=== PATIENT | male | born 1980 | race Caucasian/White ===

== ENCOUNTER 2023-11-06 23:21 | Inpatient (IN) | payer OTHER, SELFPAY ==
--- NOTE | ~2023-11-06 | XR_ITS ---
EXAMINATION: XR FOOT, RIGHT CLINICAL INFORMATION: Nonhealing wound. COMPARISON: None available. TECHNIQUE: AP, lateral, and oblique views of the right foot. FINDINGS: The bone mineralization is normal. The joint spaces are maintained. No fracture is seen. There is no bony erosive change. There is significant soft tissue swelling about the foot with an apparent wound along the dorsum of the midfoot. XR/XR foot RT 2V IMPRESSION: Significant soft tissue swelling about the foot with an apparent wound along the dorsum of the midfoot. No acute osseous abnormality.
[2023-11-06 23:27] VITALS: BP 121/83; PULSE 55; RESP 18; TEMP 36.7; O2SAT 100; BMI 25.8
--- NOTE | 2023-11-07 02:30 | ED.EXTPRO ---
HPI - Extremity Problem General Chief complaint: Extremity Problem Stated complaint: rt foot infection Time Seen by Provider: 11/07/23 01:39 Source: patient Mode of arrival: ambulatory History of Present Illness HPI Narrative: 42-year-old male with history of IVDA and states he has a nonhealing wound on the top of his right foot that he feels has continued to get red and swollen as well as warm. Related Data Allergies Allergy/AdvReac Type Severity Reaction Status Date / Time No Known Allergies Allergy Verified 11/06/23 23:27 Review of Systems Review of Systems: Pertinent positives and negatives as stated in HPI [facility] Past Medical History Source: nursing notes reviewed Social History Social History Smoked in Last 30 Days: Yes Use of substances other than those prescribed or required for medical reasons: Yes Substance Use Type: Heroin Substance Use Frequency: Chronic Longstanding Last Used Substance: Days (ago) Any prior treatment program specific to substance use: No Advance Directives: No Advance Directives Information Provided: Yes Physical Exam Vital Signs: Vital Signs: Last Vital Signs Temp 97.8 F 11/07/23 03:33 Pulse 57 11/07/23 03:33 Resp 14 11/07/23 03:33 BP 123/84 11/07/23 03:33 Pulse Ox 100 11/06/23 23:27 O2 Del Method Room Air 11/06/23 23:27 BMI result Body Mass Index 25.8 VITAL SIGNS: Reviewed. GENERAL: Well developed, well nourished, in no acute distress. HEAD: Normocephalic/atraumatic EYES: PERRLA, EOMI EARS: Ext canals without abnormality NOSE: Nares patent bilateral OROPHARYNX: no oral lesions noted, posterior pharynx clear NECK: Supple, no adenopathy LUNGS: Normal breath sounds. No adventitious sounds or accessory muscle use. SpO2<100> CARDIOVASCULAR: Regular rate and rhythm without noted murmurs ABDOMEN: Soft, non-tender, non-distended with bowel sounds. MUSCULOSKELETAL: No tenderness, deformities, or effusions noted on gross inspection. EXTREMITIES: No cyanosis, clubbing or edema. RIGHT FOOT: There is swelling, mild erythema, and an approximate 6 cm x 4.5 cm nonhealing wound to the dorsum of the foot SKIN: Inspection of the skin reveals no rashes NEUROLOGIC: Alert and oriented x 4. Strength and sensation to light touch were grossly intact x 4. Medications Administered Generic Name Dose Route Start Last Admin Trade Name Freq PRN Reason Stop Dose Admin Piperacillin Sod/Tazobactam 50 mls @ 100 mls/hr 11/07/23 03:54 11/07/23 04:05 Sod 3.375 gm/ Sodium Chloride IV 11/07/23 04:23 100 mls/hr ONCE ONE Administration Medical Decision Making Medical Decision Making [facility] Narrative: 42-year-old male with history and clinical presentation, DDX: Nonhealing right foot wound I reviewed all investigation and hematologic indices do not demonstrated leukocytosis or left shift, there is a thrombocytopenia that I suspect is chronic in nature and there is a normocytic anemia. Chemistry indices are negative for ANDERSON/electrolyte/liver enzyme derangements. CRP is within normal range. Patient received antibiotics. 0356: I discussed case with inpatient hospitalist who accepts admission. Differential Diagnosis Differential Diagnoses: The differential diagnosis associated with the presentation includes Please see the discussion above Admission/Observation Consideration of admission/observation: Escalation of care including admission/observation considered Please see the discussion above Consult Healthcare Provider Management of the patient was discussed with: Hospitalist Please see the discussion above Lab Data [facility] Lab Attestation statement: I reviewed the patient's lab results. Please see the discussion above 11/07/23 02:52 11/07/23 02:52 Labs: Lab Results 11/07/23 11/07/23 Range/Units 02:52 03:06 WBC 9.5 (4.8-10.8) X10*3/uL RBC 4.15 L (4.60-5.80) X10*6/uL Hgb 12.6 L (14.0-18.0) g/dl Hct 36.9 L (42.0-52.0) % MCV 88.9 (80.0-98.0) fL MCH 30.4 (27.0-33.0) pg MCHC 34.1 (31.0-36.0) g/dl RDW 12.3 (11.0-16.0) % Plt Count 129 L (160-400) X10*3/uL MPV 12.4 (9.4-12.4) fL Immature Gran % (Auto) 0.3 (0.0-0.4) % Neut % (Auto) 59.3 (45-73) % Lymph % (Auto) 32.4 (20-40) % Chase % (Auto) 4.6 (2-11) % Eos % (Auto) 3.0 (0-4) % Baso % (Auto) 0.4 (0-2) % Lymph # (Auto) 3.1 (1.2-4.9) X10*3/uL Chase # (Auto) 0.4 (0.1-1.2) X10*3/uL Eos # (Auto) 0.3 (0.0-0.4) X10*3/uL Baso # (Auto) 0.0 (0.0-0.2) X10*3/uL Abs Immat Gran (auto) 0.03 (0.00-0.03) X10*3/uL Absolute Neuts (auto) 5.6 (2.0-8.3) x10*3/uL Absolute Nucleated RBC 0.000 (0.0-0.012) X10*3/uL Nucleated RBC % (auto) 0.0 (0.0-0.2) /100WBC Sodium 141 (135-145) mmol/L Potassium 4.1 (3.3-5.1) mmol/L Chloride 104 (96-108) mmol/L Carbon Dioxide 26 (22-29) mmol/L Anion Gap 15 (12-20) BUN 14 (9-16) mg/dL Creatinine 0.76 (0.5-1.4) mg/dL Estim Creat Clear Calc 124.0 Estimated GFR > 60 Random Glucose 84 (60-115) mg/dL Lactic Acid 0.7 (0.5-2.0) mmol/L Calcium 9.2 (8.4-10.2) mg/dL Total Bilirubin 0.2 (0.0-1.0) mg/dL Direct Bilirubin < 0.2 (0.0-0.5) mg/dL AST 17 (5-37) U/L ALT 10 (0-40) U/L Alkaline Phosphatase 95 (39-117) U/L C-Reactive Protein 0.49 (< or = 0.50) mg/dL Total Protein 7.0 (6.5-8.0) g/dL Albumin 3.9 (3.5-5.0) g/dL Radiology Impression Discussion of test interpretation with radiology: I have reviewed the radiologist's reading. Radiologist Impression: Please see the discussion about Procedures EJ/Peripheral Line Arm R: Time Out Performed: No Skin Cleansed in Sterile Fashion: Yes Size (gauge): 18 IV Secured and Dressing Applied: Yes Patient Tolerated Procedure: well Additional Comments: Peripheral access obtained via ultrasound guidance. Discharge Plan Discharge Clinical Impression: Wound, open, foot, Cellulitis Patient Disposition: Admitted As Inpatient
--- NOTE | 2023-11-07 02:33 | PC.NURSE ---
Multiple failed attempts at obtaining labs and IV line. made aware. Will attempt U/S line.
[2023-11-07 03:07] LABS: Imm Gran Abs Auto 0.03 X10*3/uL (0.00-0.03); Imm Gran Pct Auto 0.3 % (0.0-0.4); Mean Corpuscular Volume 88.9 fL (80.0-98.0); PLT CLUMP 1; SCAN SMEAR FLAG 1
[2023-11-07 03:09] LABS: Basophils Percent Auto 0.4 % (0-2); Eosinophils Absolute Auto 0.3 X10*3/uL (0.0-0.4); Hematocrit 36.9 % (42.0-52.0); Hemoglobin 12.6 g/dl (14.0-18.0); Lymphocytes Absolute Auto 3.1 X10*3/uL (1.2-4.9); Lymphocytes Percent Auto 32.4 % (20-40); Mean Corpuscular HGB Conc 34.1 g/dl (31.0-36.0); Mean Corpuscular Hemoglobin 30.4 pg (27.0-33.0); Mean Platelet Volume 12.4 fL (9.4-12.4); Monocytes Absolute Auto 0.4 X10*3/uL (0.1-1.2); Monocytes Percent Auto 4.6 % (2-11); Neutrophils Absolute Auto 5.6 x10*3/uL (2.0-8.3); Neutrophils Percent Auto 59.3 % (45-73); Red Blood Count 4.15 X10*6/uL (4.60-5.80); Red Cell Distribution Width 12.3 % (11.0-16.0)
[2023-11-07 03:10] LABS: MANUAL DIFF FLAG NO; White Blood Count 9.5 X10*3/uL (4.8-10.8)
[2023-11-07 03:15] LABS: Alanine Aminotransferase 10 U/L (0-40); Albumin Level 3.9 g/dL (3.5-5.0); Alkaline Phosphatase 95 U/L (39-117); Anion Gap 15 (12-20); Aspartate Amino Transferase 17 U/L (5-37); Bilirubin Direct < 0.2 mg/dL (0.0-0.5); Bilirubin Total 0.2 mg/dL (0.0-1.0); Blood Urea Nitrogen 14 mg/dL (9-16); C Reactive Protein 0.49 mg/dL (< or = 0.50); Calcium 9.2 mg/dL (8.4-10.2); Carbon Dioxide 26 mmol/L (22-29); Chloride 104 mmol/L (96-108); Estimated Glomerular Filt Rate > 60; Glucose Random 84 mg/dL (60-115); Potassium 4.1 mmol/L (3.3-5.1); Sodium 141 mmol/L (135-145)
[2023-11-07 03:25] LABS: Platelet Count 129 X10*3/uL (160-400)
[2023-11-07 03:29] LABS: Lactic Acid 0.7 mmol/L (0.5-2.0)
[2023-11-07 03:33] VITALS: BP 123/84; PULSE 57; RESP 14; TEMP 36.6
--- NOTE | 2023-11-07 03:37 | PC.NURSE ---
Pt aox4 resting at the bedside. VSS. No apparent distress noted. Reports wound to the right foot itchy no pain. Wound present for a while as pt injects IVD into the wound site. 18G U/S IV line placed by . Labs drawn and sent. Pt tolerated well.
[2023-11-07] MEDS: Piperacillin Sodium/Tazobactam 3.375 GM in 0.9 % Sodium Chloride 50 ML IV (04:05)
[2023-11-07] MEDS: Doxycycline Hyclate 100 MG in 0.9 % Sodium Chloride 250 ML 166.67 MG IV (06:14)
[2023-11-07 06:19] VITALS: BP 123/84; PULSE 57; RESP 12; TEMP 36.6
--- NOTE | 2023-11-07 06:23 | PC.NURSE ---
Pharmacy history shows pt was previously prescribed Amlodipine 25mg QD, Clonodine 0.1mg TID PRN, and Hydroxyzine 25mg TID PRN June 2023. Pt reports currently not taking any of these medications. No home medications available for the [facility].
--- NOTE | 2023-11-07 07:10 | P.HPHOSP_ITS ---
History of Present Illness Date of Service: 11/07/23 Attending physician on admission: Heather Kwon Chief Complaint: Right foot wound Chuy Cuba is 42 years old man with past medical history significant for IV drug use (heroin) presents to the emergency department complaining of worsening right foot ulcer over the last month. He admits injecting heroin in that area. He denied fevers chills. Denies headache, palpitations, shortness open abdominal pain, nausea, vomiting or diarrhea. He also smoked tobacco. Denied alcohol abuse. In the ED he was found to have stable vital signs. Blood workup showed normal WBC, electrolytes, lactic acid, LFTs and CRP. Hemoglobin is 12.6. Left foot x- ray showed no bony abnormalities. ED tx: Zosyn 3.375 g IV. Review of Systems 2 Review of Systems: All 12 systems were reviewed and normal except as noted in HPI. PMFSH Social History Patient Tobacco Use Status: Current everyday Tobacco user Smoked in Last 30 Days: Yes Use of substances other than those prescribed or required for medical reasons: Yes Substance Use Type: Heroin Substance Use Frequency: Chronic Longstanding Last Used Substance: Days (ago) Any prior treatment program specific to substance use: No Advance Directives: No Advance Directives Information Provided: Yes Nutrition Risks: No Nutritional Risk Meds Allergies Allergy/AdvReac Type Severity Reaction Status Date / Time No Known Allergies Allergy Verified 11/06/23 23:27 Active Medications: Current Medications Acetaminophen (Acetaminophen 325 Mg Tablet) 650 mg PO Q6H PRN PRN Reason: Pain, Mild (Pain Scale 1-3) Doxycycline Hyclate 100 mg/ (Sodium Chloride) 250 mls @ 166.67 mls/hr IV Q12H [facility] Last Admin: 11/07/23 06:14 Dose: 166.67 mls/hr Sodium Chloride (0.9 % Sodium Chloride Flush 3 Ml Syringe) 3 ml IVFLUSH QSHIFT [facility] Home Medications Medication Instructions Recorded Confirmed Last Taken Type No Known Home Meds 11/07/23 11/07/23 Unknown History Physical Exam 2 Vital Signs and Narrative: Vital Signs: Last Vital Signs Temp 97.8 F 11/07/23 06:19 Pulse 57 11/07/23 06:19 Resp 12 03/22/24 06:19 BP 123/84 11/07/23 06:19 Pulse Ox 100 11/06/23 23:27 O2 Del Method Room Air 11/06/23 23:27 BMI result Body Mass Index 25.8 Constitutional - Awake and Alert, No apparent distress. Afebrile HEENT - Pupils equally round. Normal sclerae. Moist oral mucosa Heart - S1S2, RRR. Lungs - Normal lung expansion, Normal respiratory effort, No respiratory distress, CTA bilaterally Abdomen - NT / ND; +BS; No rebound or guarding Extremities: Right foot: Musculoskeletal - Normal inspection, normal ROM Skin - Warm/Dry Neurological - Alert & oriented x3. Psychological - Appropriate affect Results Labs 11/07/23 02:52 11/07/23 02:52 Labs: Laboratory Results - last 24 hr 11/07/23 11/07/23 02:52 03:06 MCV 88.9 MCH 30.4 MCHC 34.1 RDW 12.3 Plt Count 129 L MPV 12.4 Immature Gran % (Auto) 0.3 Neut % (Auto) 59.3 Lymph % (Auto) 32.4 Lyon % (Auto) 4.6 Eos % (Auto) 3.0 Baso % (Auto) 0.4 Lymph # (Auto) 3.1 Lyon # (Auto) 0.4 Eos # (Auto) 0.3 Baso # (Auto) 0.0 Abs Immat Gran (auto) 0.03 Absolute Neuts (auto) 5.6 Absolute Nucleated RBC 0.000 Nucleated RBC % (auto) 0.0 Anion Gap 15 Estim Creat Clear Calc 124.0 Estimated GFR > 60 Random Glucose 84 Lactic Acid 0.7 Calcium 9.2 Total Bilirubin 0.2 Direct Bilirubin < 0.2 AST 17 ALT 10 Alkaline Phosphatase 95 C-Reactive Protein 0.49 Total Protein 7.0 Albumin 3.9 Imaging Radiologist's Impressions: Impressions Foot X-Ray 11/07/23 04:28 IMPRESSION: Significant soft tissue swelling about the foot with an apparent wound along the dorsum of the midfoot. No acute osseous abnormality. Assessment and Plan (1) Cellulitis: Qualifiers: Site of cellulitis: extremity Laterality: right Site of cellulitis of extremity: lower extremity Qualified Code(s): L03.115 - Cellulitis of right lower limb Status: Acute (2) Wound, open, foot: Qualifiers: Encounter type: initial encounter Laterality: right Qualified Code(s): S91.301A - Unspecified open wound, right foot, initial encounter Status: Acute Plan Chuy Cuba is 42 years old man admitted with: * Right foot wound and cellulitis secondary to IV drug abuse. No sepsis. Low suspicion for osteomyelitis. Admit to hospitalist service. Start antibiotic therapy with doxycycline IV every 12 hours. Surgery consult for further recommendations. Patient was advised to stop injecting IV drugs. * IV drug use. Addiction medicine consult. * Anemia. Continue to monitor. Patient will need hospitalization for at least 2 midnights for right foot ulcer and cellulitis with IV antibiotic therapy and evaluation by surgery. Quality Stroke Does the patient have a stroke diagnosis?: No VTE Prior VTE?: No VTE Risk Level:: Medical - moderate - high VTE Device Contraindication: Treatment Not Indicated VTE Drug Contraindication: Treatment Not Indicated
[2023-11-07] MEDS: vancomycin/NS 2,000 MG/500 ML PLAST..BAG 250 MG IV (08:44)
--- NOTE | 2023-11-07 08:52 | PM.CNGS ---
History of Present Illness Consult details Consult date: 11/07/23 Narrative: 42-year-old male here in the ER because of an ulcer on the dorsum of the right foot. He admits to using this area for injections for heroin. He says that this area seems to be worsening for the past month. He denied any fever or chills. He did not appear to be septic on admission. Review of Systems Constitutional: Constitutional: Denies chills and Denies fever(s) Cardiovascular: Cardiovascular: Denies chest pain, Denies dyspnea and Denies dyspnea on exertion Respiratory: Respiratory: Denies cough, Denies dyspnea and Denies dyspnea on exertion Gastrointestinal: Gastrointestinal: Denies hematochezia and Denies change in bowel habits Genitourinary: Genitourinary: Denies hematuria and Denies difficulty urinating Musculoskeletal: Musculoskeletal: Denies back pain and Denies limited range of motion Neurologic: Denies focal weakness and Denies convulsions Psychiatric: Psychiatric: Denies depression and Denies mood swings PMFSH Social History Social History Patient Tobacco Use Status: Current everyday Tobacco user Substance Use Type: Heroin service: No Meds Allergies Allergy/AdvReac Type Severity Reaction Status Date / Time No Known Allergies Allergy Verified 11/06/23 23:27 Active Medications: Current Medications Acetaminophen (Acetaminophen 325 Mg Tablet) 650 mg PO Q6H PRN PRN Reason: Pain, Mild (Pain Scale 1-3) Vancomycin HCl (Vancomycin/Ns) 2,000 mg in 500 mls @ 250 mls/hr IV ONCE ONE Stop: 11/07/23 09:59 Last Admin: 11/07/23 08:44 Dose: 250 mls/hr Pharmacy Consult (Consult Rx Vancomycin Dosing) 1 each MISCELLANE DAILY PRN PRN Reason: Consult order Sodium Chloride (0.9 % Sodium Chloride Flush 3 Ml Syringe) 3 ml IVFLUSH QSHIFT [facility] Last Admin: 11/07/23 08:44 Dose: Not Given Home Medications Medication Instructions Recorded Confirmed Last Taken Type No Known Home Meds 11/07/23 11/07/23 Unknown History Physical Exam Vital Signs: Vital Signs: Last Vital Signs Temp 97.8 F 11/07/23 06:19 Pulse 57 11/07/23 06:19 Resp 12 11/07/23 06:19 BP 123/84 11/07/23 06:19 Pulse Ox 100 11/06/23 23:27 O2 Del Method Room Air 11/06/23 23:27 BMI result Body Mass Index 25.8 Const: General: comfortable and no acute distress Orientation/consciousness: patient oriented x3 Neck: Neck: Yes no lymphadenopathy Resp: Auscultation: clear to auscultation bilaterally Cardio: Rhythm: regular rhythm GI: Palpation (GI): Soft to palpation, nontender and no guarding Neuro: General: patient oriented x3 Extrem: Other: Dorsum of right foot with note of an ulcer, about 5 cm in size, with irregular skin surfaces, fibrotic changes, no pus, no necrotic areas, no abscess Results Labs 11/07/23 02:52 11/07/23 02:52 Labs: Abnormal lab results 11/07/23 Range/Units 02:52 RBC 4.15 L (4.60-5.80) X10*6/uL Hgb 12.6 L (14.0-18.0) g/dl Hct 36.9 L (42.0-52.0) % Plt Count 129 L (160-400) X10*3/uL Short CBC 11/07/23 Range/Units 02:52 WBC 9.5 (4.8-10.8) X10*3/uL Hgb 12.6 L (14.0-18.0) g/dl Hct 36.9 L (42.0-52.0) % Plt Count 129 L (160-400) X10*3/uL BMP 11/07/23 02:52 Sodium 141 Potassium 4.1 Chloride 104 Carbon Dioxide 26 BUN 14 Creatinine 0.76 Calcium 9.2 Liver Function 11/07/23 Range/Units 02:52 Total Bilirubin 0.2 (0.0-1.0) mg/dL Direct Bilirubin < 0.2 (0.0-0.5) mg/dL AST 17 (5-37) U/L ALT 10 (0-40) U/L Alkaline Phosphatase 95 (39-117) U/L Albumin 3.9 (3.5-5.0) g/dL All other labs normal. Assessment and Plan (1) Wound, open, foot: Qualifiers: Encounter type: initial encounter Laterality: right Qualified Code(s): S91.301A - Unspecified open wound, right foot, initial encounter Status: Acute He has an open wound on the dorsum of the right foot which she has been using as access for IV drug use with heroin. Currently there is no necrotic tissue or any abscess. It does not appear that he will require debridement at this time. I did changes dressings and wrapped the foot with a Lorin roll. I did world travel counselor him on the risks of needing surgical intervention including amputation in the future if this area worsens with continued drug use. I would recommend daily wound care for now with dry gauze. Procedures Date of Service Date of Service: 11/11/23
--- NOTE | 2023-11-07 09:11 | PHA.PROG ---
Admission Date/Time: November 07, 2023 05:42 Indication: skin Weight in k.379 kg Adjusted body weight in Kg: [place] body weight in Kg: Obesity Dosing Indication % IBW: Serum Creatinine - Last 168 Hours 11/07/23 02:52 Creatinine 0.76 Estimated CrCl and GFR - Last 168 Hours 11/07/23 02:52 Estim Creat Clear Calc 124.0 Estimated GFR > 60 Vancomycin Loading Dose: 2000mg x 1 Current Vancomycin Dosing Regimen: 1250mg Q12H Vancomycin Monitoring using AUC goal of 400 - 600 range with trough as surrogate marker: 494 mg/L Date and Time for next Vancomycin Level to be drawn: 11/07 @1900 Pharmacist Comments on Vancomycin Plan: predicted trough of 14.5 mg/L, will continue to monitor and adjust Vancomycin dosing will take advantage of ScoreGrid as a clinical decision support tool that uses Bayesian modeling to calculate individual patient's pharmacokinetic parameters and forecast the patient's drug concentration time course with the target goal AUC 24 range of 400 - 600 mg/L/hr.
[2023-11-07 09:57] VITALS: BP 132/85; PULSE 63; RESP 16; TEMP 36.5; O2SAT 100
[2023-11-07 09:58] LABS: Glucose, Whole Blood 77 mg/dL (60-115)
--- NOTE | 2023-11-07 10:12 | PC.NURSE ---
this RN resumed care of pt at this time. pt transferred from [facility] and now resides in ED overflow bed 1. a&ox4. vss and up to date. independent baseline - no use of assistive devices needed. pt currently denies pain/has no complaints. pt currently has vancomycin running through IV that was placed in his RUE via ultrasound guidance in the main ED. patent/intact. pt verbalizes chronic use of heroin intravenously. pt states last using 4 bundles in his right foot [employer]. pt states that he has never injected anywhere else on his body. denies fever/chills. pt seen by pyridine recovery operator RN, Susie, at this time. plan for pt is to start him on methadone. pt notified/aware that urine is needed so drug screen can be obtained. will send to lab when able. pt currently resting in bed in no apparent distress. pt waiting for bed assignment at this time. no sob/wob noted. respirations even and unlabored. call mcnair placed within reach.
--- NOTE | 2023-11-07 11:33 | PC.NURSE ---
urine obtained/sent to lab. supervisor blood, Enedina, bedside at this time.
--- NOTE | 2023-11-07 11:44 | MHC.RECOVRN ---
Met with pt in Overflow 1 after consult placed to Addiction Medicine for substance use. Pt had presented to the ED for evaluation of right food wound and reporting injecting substances into the affected area. Upon evaluation, pt admitted for cellulitis and open wound on foot. Pt sitting in bed, awake, alert, easily engages in conversation, appears comfortable however has watery eyes. Pt reports heroin/fentanyl use, 3 bundles daily, IV, last use prior to arrival. Pt reports injecting into his wound as he does not have IV access in any other area. Pt reports he had been on methadone through [facility], however, went on a trip to [place] and did not return to the [facility] when he returned to the area. Pt reports since not receiving methadone, he has been using fentanyl. Pt denies other substances. Pt would like to restart methadone and return to [facility]. Pt reports withdrawal symptoms including upset stomach, nausea, some diaphoresis. Pt denies questions or concerns for t/w. Spoke with [facility]., pt last received 60 mg methadone on 10/22 and is able to return to the [facility] upon dc.
[2023-11-07 11:51] LABS: Amphetamine Screen Urine Not Detected (Not Detect); Barbiturates, Urine Not Detected (Not Detect); Benzodiazepines Screen Urine Not Detected (Not Detect); Cannabinoid Screen Urine Not Detected (Not Detect); Cocaine Screen Urine Not Detected (Not Detect); Fentanyl, urine POSITIVE (Not Detect); Opiate Screen Urine Not Detected (Not Detect); Phencyclidine Screen Urine Not Detected (Not Detect)
--- NOTE | 2023-11-07 12:40 | HO.WOUND ---
Wound Consult: Initial 42yr old?M admitted to [facility] on 11/07/23 - See progress notes and H&P for detailed history.? Wound consult placed for Right Foot wound secondary to IVDU injection site.? Patient agreeable to assessment and photo documentation.? Patient reports she continues to inject into the wound. He reports understanding to the concern for injecting into wound - I explained to him the tissue necrosis and concern for healing - he reports understanding. He reports continued injection into this site since he is not successful with injection into other areas. Patient did not express wanted to stop using at this time but does report understanding with current site / wound injection. Patient reports he uses clean new needle with each injection, performs hand hygiene and wound site cleansing prior to injection - these are all good interventions to minimize secondary infection. The patient reports she has sough treatment in the past for the wound via the emergency department but has not sought treatment outside of that - we discussed outpatient wound care and he was not interested in that at this time - we discussed [facility] he reports being aware of the clinic and services but not [facility] wound care portion. He reports she will consider follow up with [facility] for continued wound treatment. Right Foot Etiology: ?IV Drug injection site Measurements: 6cm x 5cm x 0.3cm Wound Bed: Full thickness tissue loss with scattered areas of dry adherent yellow slough with few scattered areas of black dried necrotic tissue vs scab Drainage / Odor: No drainage noted Edges: ? irregular and hyper and hypopigmented Mireille wound: ?Firm Swelling noted no warmth noted patient denies neuropathy (Numbness and tingling) Pain: denies at this time Goals of Treatment: ? Moist wound healing - discontinue injection into site and outpt wound care follow up with Outpatient wound clinic or [facility] wound clinic. Recommendations: 1. Right Foot - May wash with routine showering rinse well, pay dry. May wash with NS moist gauze, pat dry. Cover wound bed with single layer xeroform, ABD pad, gauze wrap and secure with tape. Change daily. Re-consult wound care Nurse for wound deterioration or wound changes.
[2023-11-07] MEDS: methADONE HCl 20 MG/2 ML ORAL.CONC 30 MG PO (12:48)
--- NOTE | 2023-11-07 12:49 | PC.NURSE ---
methadone administered per provider order.
--- NOTE | 2023-11-07 13:12 | PC.NURSE ---
PT IS REQUESTING TO BE D/C'D HOME. MD AWARE.
[2023-11-07 14:13] VITALS: BP 123/59; PULSE 70; RESP 18; TEMP 37.1; O2SAT 100
--- NOTE | 2023-11-07 14:31 | MHC.CM.PN ---
pt lives with is independent had no services has own ride home
--- NOTE | 2023-11-07 14:50 | PC.NURSE ---
pt came up to this RN at the nurses station stating that he wanted to leave. when asking the pt why, he just states I don't want to be here. this RN educated pt on the importance of receiving IV abx prior to being transitioned to PO abx. pt states that he has had enough abx in general and just wants to leave and follow up w/ outpatient wound clinic. admitting provider Dr. Bae notified and aware. pt signed AMA paperwork. paperwork placed in chart. IV removed prior to d/c. pt leaving ED overflow at this time.
--- NOTE | 2023-11-08 07:10 | P.DS_ITS ---
DS: Providers Provider Date of Service: 11/08/23 Date of admission: 11/07/23 05:42 Primary care physician: Unknown Physician Consults: 11/07/23 05:43 Consult to General Surgery Routine Consulting Provider: [facility]geons Reason for consultation: Nonhealing ulcer, right foot Has provider been notified: No 11/07/23 05:44 Addiction Medicine Routine Consulting Provider: Addiction Covering Reason for consultation: IVDU Has provider been notified: No 11/07/23 07:31 Consult to Wound Care Routine Reason for consultation: Right foot wound DS: Diagnosis Discharge Diagnosis (1) Wound, open, foot: Status: Acute DS: Summary Hospital Course Hospital Course: HPI: Chuy Cuba is 42 years old man with past medical history significant for IV drug use (heroin) presents to the emergency department complaining of worsening right foot ulcer over the last month. He admits injecting heroin in that area. He denied fevers chills. Denies headache, palpitations, shortness open abdominal pain, nausea, vomiting or diarrhea. He also smoked tobacco. Denied alcohol abuse. Hospital course: Patient was admitted to medicine floor initiated on empiric IV antibiotics. General surgery was consulted who recommended wound care. No debridement was necessary as per General surgery. Addiction Team was consulted and patient was initiated on methadone. During hospital course, patient decided to leave AMA. He understood the risk of leaving including worsening of foot infection, surgical intervention including amputation if infection versus, septicemia and/or . Will send p.o. outpatient antibiotics Status at Discharge Functional status at discharge: independent ambulation Overall status at discharge: patient is back to baseline Time Attestation Total time managing care of this patient today: 20 mintues. Discharge Coordination Time (in mins): 20 Quality: Safe Use of Opioids Does Pt have an Active Cancer Diagnosis on the Problem List?: No Quality: Stroke Does the patient have a stroke diagnosis?: No Physical Exam Vital Signs: Vital Signs: Last Vital Signs Temp 98.7 F 11/07/23 14:13 Pulse 70 11/07/23 14:13 Resp 18 11/07/23 14:13 BP 123/59 L 11/07/23 14:13 Pulse Ox 100 11/07/23 14:13 O2 Del Method Room Air 11/07/23 14:13 BMI result Body Mass Index 25.8 Const: General: comfortab le and no acute di stress Orientatio n/consciousness: p atient oriented x3 Neck: Neck: Yes no lymph adenopathy Resp: Auscultation: good r to auscultation bilaterally Cardio: Rhythm: regular rh ythm GI: Palpation (GI): So ft to palpation, n ontender and no gu arding Neuro: General: patient o riented x3 Extrem: Other: Dorsum of right foot with n ote of an ulcer, a bout 5 cm in size, with irregular sk in surfaces, fibro tic changes, no pu s, no necrotic are as, no abscess DS: Data Data Completed and Pending Labs on day of discharge: Laboratory Results - last 24 hr 11/07/23 11/07/23 09:55 11:31 POC Glucose 77 Urine Opiates Screen Not Detected Urine Fentanyl Screen POSITIVE H Ur Barbiturates Screen Not Detected Ur Phencyclidine Scrn Not Detected Ur Amphetamines Screen Not Detected U Benzodiazepines Scrn Not Detected Urine Cocaine Screen Not Detected U Marijuana (THC) Screen Not Detected Preliminary micro results at discharge 11/07/23 03:06 Blood Culture - Preliminary Blood - Venous No growth after 24 hours. 11/07/23 03:05 Blood Culture - Preliminary Blood - Venous No growth after 24 hours. Imaging Chest x-ray: Radiologist's impression: ITS Impressions Foot X-Ray 11/07/23 04:28 IMPRESSION: Significant soft tissue swelling about the foot with an apparent wound along the dorsum of the midfoot. No acute osseous abnormality. Discharge Plan Discharge Anticipated Discharge Date/Time: 11/08/23 07:16 Patient Disposition: Left Against Medical Advice Discharge Diagnosis: Right foot wound with cellulitis Referrals: Physician,Unknown J [Primary Care Provider] - 1 Week Discharge Medications: New doxycycline hyclate 100 mg capsule 100 mg PO DAILY 7 Days Qty: 7 0RF No Action No Known Home Meds Discharge Orders: Discharge Order (Routine); Ordered 11/08/23 Ordered By: Catherine Bae Diet: Regular diet Activity on Discharge: As tolerated Stand Alone Forms: Against Medical Advice, Work/School Release Care Plan Goals: Follow up with wound care Follow up with PCP in one week Health Concerns: IV drug use disorder Right foot wound with cellulitis Plan of Treatment: Doxycycline po 100mg bid x 7 days Assessment: as above Discharge Date/Time: 11/07/23 15:54
--- NOTE | 2023-11-08 10:30 | MHC.CM.PN ---
Patient left AMA.
== END 2023-11-07 15:54 | disposition left against medical advice (07) | DRG 383 ==
LOC: HO.ED 11-07 04:12 → HO.EDOVER 11-07 05:46
PROVIDERS: Admitting Provider Internal Medicine; Emergency Provider Student in an Organized Health Care Education/Training Program; Visit Provider Student in an Organized Health Care Education/Training Program
DX: L03.115 Cellulitis of right lower limb (principal); L97.819 Non-pressure chronic ulcer of other part of right lower leg with unspecified severity; D64.9 Anemia, unspecified; F11.90 Opioid use, unspecified, uncomplicated
CPT/HCPCS: 36415; 73620; 80048; 80076; 80307; 82947; 83605; 85025; 86140; 87040; 99221; 99285; J2543; J3370

== ENCOUNTER → 2023-11-07 05:42 | Outpatient (BNV) | payer OTHER, SELFPAY | PROVIDERS: Admitting Provider Internal Medicine; Emergency Provider Student in an Organized Health Care Education/Training Program; Visit Provider Surgery | DX: S91.301A Unspecified open wound, right foot, initial encounter (principal) | CPT/HCPCS: 99222 ==

== ENCOUNTER → 2023-11-07 05:42 | Outpatient (BNV) | payer OTHER, SELFPAY | PROVIDERS: Admitting Provider Internal Medicine; Emergency Provider Student in an Organized Health Care Education/Training Program; Visit Provider Internal Medicine | DX: L03.115 Cellulitis of right lower limb (principal); S91.301A Unspecified open wound, right foot, initial encounter; L97.518 Non-pressure chronic ulcer of other part of right foot with other specified severity | CPT/HCPCS: 99222; 99238 ==

== ENCOUNTER 2024-04-22 01:26 | Inpatient (IN) | payer OTHER, SELFPAY ==
--- NOTE | ~2024-04-22 | XR_ITS ---
EXAMINATION: XR FINGER, RIGHT CLINICAL INFORMATION: Redness and swelling of right middle finger. COMPARISON: None available. TECHNIQUE: Two views of the right long finger. PA view of the right hand. FINDINGS: Alignment is anatomic. Joint spaces are maintained. No displaced fracture or dislocation. There is an incidental long osseous process/exostosis of the base of the fifth metacarpal. There is diffuse soft tissue swelling of the third digit. No retained radiopaque foreign body or soft tissue gas. No destructive bone changes. XR/XR finger RT min 2V IMPRESSION: There is diffuse soft tissue swelling of the third digit. No retained radiopaque foreign body or soft tissue gas. No destructive bone changes. Electronically signed by: Bakari Bee MD 05/28/2024 10:26 AM EDT
--- NOTE | ~2024-04-22 | MR_ITS ---
EXAMINATION: MR FOOT WITHOUT AND WITH CONTRAST, RIGHT CLINICAL INFORMATION: Question osteomyelitis. COMPARISON: Right foot radiographs from the same date. TECHNIQUE: MRI of the right forefoot and midfoot was performed before and after the intravenous administration of 7 mL Gadavist on a high-field scanner. FINDINGS: An irregular region of skin thickening, hyperenhancement, and central ulceration is present at the dorsal aspect of the forefoot and midfoot measuring 8 x 6 cm and iliac more pronounced medially. There is underlying edema signal and hyperenhancement in the subcutaneous soft tissues. No subcutaneous abscess. Mild marrow edema signal is present in the dorsolateral aspect of the cuboid demonstrates associated mild hyperenhancement. This may be reactive in nature as there is abnormal signal intensity in this region on T1-weighted images without replacement of the normal fat signal. No reversible sites with no convincing evidence of osteomyelitis. There is keij-wk-tqvopxyk osteoarthritis of the first MTP degenerative narrowing of joint space narrowing and cortical irregularity, and subchondral edema. MTP and interphalangeal joints are otherwise unremarkable. Midfoot joints appear relatively well preserved aside from small dorsal osteophytes of the navicular cuneiform joints. Intrinsic foot musculature is normal in signal intensity. Plantar fascia is unremarkable. No tendon tears or tenosynovitis. No evidence of Robison's neuroma. No adventitious bursitis. MR/MR foot RT wo/w con IMPRESSION: 1. Large skin ulcer at the dorsal aspect of the forefoot and midfoot with underlying cellulitis. No abscess. No convincing evidence of osteomyelitis. Mild marrow edema signal in the dorsolateral aspect of the cuboid is most likely reactive in nature. 2. 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 Electronically signed by: Mariano Eng MD 04/22/2024 03:02 PM EDT
--- NOTE | ~2024-04-22 | XR_ITS ---
EXAMINATION: XR FOOT, RIGHT CLINICAL INFORMATION: Cellulitis, rule out osteomyelitis COMPARISON: None available. TECHNIQUE: AP, lateral, and oblique views of the right foot. FINDINGS: Osseous alignment appears anatomic. No acute fracture is seen. There is prominent soft tissue swelling throughout the dorsum of the foot. No convincing findings of associated osteomyelitis. Minimal degenerative changes of the midfoot. XR/XR foot RT min 3V IMPRESSION: Prominent soft tissue swelling throughout the dorsum of the foot. No convincing findings of osteomyelitis. Since radiographic sensitivity for early osteomyelitis is relatively limited, however, consider further evaluation with MRI if clinically warranted. Electronically signed by: Steve Bella MD 04/22/2024 05:25 AM EDT
[2024-04-22 01:35] VITALS: BP 127/85; PULSE 71; RESP 18; TEMP 36.8; O2SAT 100; BMI 25.8
[2024-04-22 02:27] LABS: Basophils Absolute Auto 0.1 X10*3/uL (0.0-0.2); Basophils Percent Auto 0.4 % (0-2); Eosinophils Absolute Auto 0.3 X10*3/uL (0.0-0.4); Eosinophils Percent Auto 2.2 % (0-4); Hematocrit 46.7 % (42.0-52.0); Hemoglobin 15.9 g/dl (14.0-18.0); Imm Gran Abs Auto 0.03 X10*3/uL (0.00-0.03); Imm Gran Pct Auto 0.2 % (0.0-0.4); Lymphocytes Absolute Auto 2.9 X10*3/uL (1.2-4.9); Lymphocytes Percent Auto 20.9 % (20-40); MANUAL DIFF FLAG NO; Mean Corpuscular Hemoglobin 30.4 pg (27.0-33.0); Mean Corpuscular Volume 89.3 fL (80.0-98.0); Mean Platelet Volume 11.2 fL (9.4-12.4); Monocytes Absolute Auto 0.6 X10*3/uL (0.1-1.2); Monocytes Percent Auto 4.3 % (2-11); Platelet Count 184 X10*3/uL (160-400); Red Blood Count 5.23 X10*6/uL (4.60-5.80); Red Cell Distribution Width 12.3 % (11.0-16.0); White Blood Count 13.9 X10*3/uL (4.8-10.8)
[2024-04-22 03:00] LABS: Erythrocyte Sedimentation Rate 40 MM/HR (0-15)
[2024-04-22 03:07] LABS: Alanine Aminotransferase 15 U/L (0-40); Albumin Level 4.9 g/dL (3.5-5.0); Alkaline Phosphatase 132 U/L (39-117); Anion Gap 16 (12-20); Aspartate Amino Transferase 20 U/L (5-37); Bilirubin Total 0.3 mg/dL (0.0-1.0); Blood Urea Nitrogen 14 mg/dL (9-16); C Reactive Protein 2.83 mg/dL (< or = 0.50); Calcium 10.8 mg/dL (8.4-10.2); Carbon Dioxide 28 mmol/L (22-29); Chloride 99 mmol/L (96-108); Estimated Glomerular Filt Rate > 60; Glucose Random 106 mg/dL (60-115); Lipase 13 U/L (8-78); Potassium 4.1 mmol/L (3.3-5.1); Sodium 139 mmol/L (135-145); Total Protein 9.2 g/dL (6.5-8.0)
[2024-04-22 03:19] VITALS: BP 107/72; PULSE 68; RESP 18; TEMP 36.7; O2SAT 97
[2024-04-22] MEDS: Piperacillin Sodium/Tazobactam 3.375 GM in 0.9 % Sodium Chloride 50 ML IV (04:37)
--- NOTE | 2024-04-22 04:52 | ED_ITS ---
HPI - Wound/Laceration General Chief Complaint: Wound/Laceration Stated Complaint: infected foot and finger Time Seen by Provider: 04/22/24 04:02 Source: patient Mode of arrival: ambulatory History of Present Illness ED Provider: DR. Tijerina HPI narrative: 43-year-old male with history of chronic right foot infected wound follow at [facility] wound clinic, came in for evaluation of worsening of the wound infection with yellow discharge out of the wound. No fever, no chills. Related Data Allergies Allergy/AdvReac Type Severity Reaction Status Date / Time No Known Allergies Allergy Verified 04/22/24 01:42 Review of Systems 2 Review of Systems: All other systems are reviewed and are negative Constitutional: Reports as per HPI and Reports no additional constitutional complaints Eyes: Reports as per HPI and Reports no additional eye complaints Reports system reviewed and no additional complaints, except as documented Cardiovascular: Reports as per HPI and Reports no additional cardiovascular complaints Respiratory: Reports as per HPI and Reports no additional respiratory complaints Gastrointestinal: Reports as per HPI and Reports no additional gastrointestinal complaints Genitourinary: Reports no additional female genitourinary complaints Musculoskeletal: Reports no additional musculoskeletal complaints Skin/Breast: Reports system reviewed and no additional complaints, except as docu Psychiatric: Reports no additional psychiatric complaints Endocrine: Reports no additional endocrine complaints Hematologic/Lymphatic: Reports no additional hematologic/lymphatic complaints Allergic/Immunologic: Reports no additional allergic/immunologic complaints Reports system reviewed and no additional complaints, except as documented and Reports Abnormal speech present [facility] Social History Social History Smoked in Last 30 Days: Yes Use of substances other than those prescribed or required for medical reasons: Yes Substance Use Type: Heroin Substance Use Frequency: Daily Advance Directives: No Advance Directives Information Provided: Yes Do you have a plan to hurt others: No Plan Physical Exam 2 Vital Signs: Vital Signs: Last Vital Signs Temp 98.1 F 04/22/24 03:19 Pulse 68 04/22/24 03:19 Resp 18 04/22/24 03:19 BP 107/72 04/22/24 03:19 Pulse Ox 97 04/22/24 03:19 O2 Del Method Room Air 04/22/24 03:19 BMI result Body Mass Index 25.8 Vital signs have been reviewed and appear to be correct. Blood pressure elevated. Heart rate normal. Respiratory rate normal. Temperature normal. Oxygen saturation normal. Appearance: Alert. Oriented X3. No acute distress. Head: Normal external exam. Normocephalic. Atraumatic. No Nicholson signs noted. No raccoon eyes noted Eyes: PERRLA. EOMI. Conjunctiva and sclera normal. Eyelids normal. ENT: TM's Normal. Pharynx normal. Uvula midline. Moist mucous membranes. No trismus noted. No drooling noted. No muffled voice noted. Neck: Normal inspection. Neck supple. FROM. No adenopathy. Thyroid Normal. No meningeal signs. No neck mass noted. CVS: Normal heart rate and rhythm. Heart sound normal. No murmurs noted. Pulses normal throughout. Respiratory: No respiratory distress. Painless inspiration. Breath sounds normal. No wheezes/rales/rhonchi noted. Chest nontender. No accessory muscle usage noted or decreased air movement noted. Abdomen: Soft and nontender. Bowel sounds normal in all 4 quadrants. No distention noted. No organomegaly noted. No visible injury noted. Back: No CVA tenderness. Full range of motion noted. Skin: Skin warm and dry. Normal skin color. Normal skin turgor. No rashes/lesions/lacerations noted. Extremities: Right foot: 10 x 5 cm area of ulcerative lesion on the dorsal aspect of the right foot surrounded with area redness and hotness no fluctuation Neuro: Oriented X 3. Cranial nerve exam: II-XII are grossly intact No motor deficit. No sensory deficit. Reflexes normal. Course Reevaluation(s) Reevaluation #1: Worsening of chronic right foot infection unable to care at home for the wounds patient received Zosyn and vancomycin in the ED, leukocytosis, x-ray no acute osteomyelitis. Time: 05:14 Medications Administered Discontinued Medications Generic Name Dose Route Start Last Admin Trade Name Freq PRN Reason Stop Dose Admin Piperacillin Sod/Tazobactam 50 mls @ 100 mls/hr 04/22/24 04:15 04/22/24 05:09 Sod 3.375 gm/ Sodium Chloride IV 04/22/24 04:44 Infused ONCE ONE Infusion Medical Decision Making Differential Diagnosis Differential Diagnoses: The differential diagnosis associated with the presentation includes (Right foot cellulitis, acute osteomyelitis.) Admission/Observation Consideration of admission/observation: Escalation of care including admission/observation considered Lab Data [facility] Lab Attestation statement: I reviewed the patient's lab results. 04/22/24 02:20 04/22/24 02:20 Labs: Lab Results 04/22/24 Range/Units 02:20 WBC 13.9 H (4.8-10.8) X10*3/uL RBC 5.23 (4.60-5.80) X10*6/uL Hgb 15.9 (14.0-18.0) g/dl Hct 46.7 (42.0-52.0) % MCV 89.3 (80.0-98.0) fL MCH 30.4 (27.0-33.0) pg MCHC 34.0 (31.0-36.0) g/dl RDW 12.3 (11.0-16.0) % Plt Count 184 (160-400) X10*3/uL MPV 11.2 (9.4-12.4) fL Immature Gran % (Auto) 0.2 (0.0-0.4) % Neut % (Auto) 72.0 (45-73) % Lymph % (Auto) 20.9 (20-40) % [place] % (Auto) 4.3 (2-11) % Eos % (Auto) 2.2 (0-4) % Baso % (Auto) 0.4 (0-2) % Lymph # (Auto) 2.9 (1.2-4.9) X10*3/uL [place] # (Auto) 0.6 (0.1-1.2) X10*3/uL Eos # (Auto) 0.3 (0.0-0.4) X10*3/uL Baso # (Auto) 0.1 (0.0-0.2) X10*3/uL Abs Immat Gran (auto) 0.03 (0.00-0.03) X10*3/uL Absolute Neuts (auto) 10.0 H (2.0-8.3) x10*3/uL Absolute Nucleated RBC 0.000 (0.0-0.012) X10*3/uL Nucleated RBC % (auto) 0.0 (0.0-0.2) /100WBC ESR 40 H (0-15) MM/HR Sodium 139 (135-145) mmol/L Potassium 4.1 (3.3-5.1) mmol/L Chloride 99 (96-108) mmol/L Carbon Dioxide 28 (22-29) mmol/L Anion Gap 16 (12-20) BUN 14 (9-16) mg/dL Creatinine 0.98 (0.5-1.4) mg/dL Estim Creat Clear Calc 92.0 Estimated GFR > 60 Random Glucose 106 (60-115) mg/dL Lactic Acid 1.0 (0.5-2.0) mmol/L Calcium 10.8 H (8.4-10.2) mg/dL Total Bilirubin 0.3 (0.0-1.0) mg/dL AST 20 (5-37) U/L ALT 15 (0-40) U/L Alkaline Phosphatase 132 H (39-117) U/L C-Reactive Protein 2.83 H (< or = 0.50) mg/dL Total Protein 9.2 H (6.5-8.0) g/dL Albumin 4.9 (3.5-5.0) g/dL Lipase 13 (8-78) U/L Independent Interpretation I performed an independent interpretation of an: Plain X-Ray (Right foot x-ray: No evidence of acute osteomyelitis.) Radiology Impression Discussion of test interpretation with radiology: I have reviewed the radiologist's reading. Discharge Plan Discharge Clinical Impression: Cellulitis of foot, right Patient Disposition: Admitted As Inpatient Print Language: Albanian
[2024-04-22] MEDS: vancomycin HCL 1,000 MG in 0.9 % Sodium Chloride 250 ML 270 MG IV ×3 (05:14→19:42)
--- NOTE | 2024-04-22 06:00 | P.HPHOSP_ITS ---
History of Present Illness Date of Service: 04/22/24 Chief Complaint: Right foot infection This is a 43-year-old male with pertinent history of IV drug use disorder who presents to the emergency department for concerns of right foot infection. Patient states he has had right foot wound for about a year now. He follows up with wound care outpatient and has tried p.o. antibiotics. He endorses that he did inject IV drugs in his right foot. States the nonhealing wound has been draining foul-smelling pus over the last few days. Of note, patient was admitted in October 2023 for right foot cellulitis but left AMA. Also has right finger swelling, erythema, warmth and pain. No fever, chills, chest discomfort, palpitations, shortness of breath, abdominal pain, changes in urinary or bowel habits. In the emergency department, patient was initiated on empiric Zosyn and vancomycin. WBC elevated at 13.9. Review of Systems 2 Constitutional: Constitutional: Reports no additional constitutional complaints Cardiovascular: Cardiovascular: Reports no additional cardiovascular complaints Respiratory: Respiratory: Reports no additional respiratory complaints Gastrointestinal: Gastrointestinal: Reports no additional gastrointestinal complaints Genitourinary: Genitourinary: Reports no additional male genitourinary complaints Musculoskeletal: Musculoskeletal: Reports arthralgias and Reports joint swelling PMF Medical History IV drug user Pertinent family history: No family history of early CAD Social History Smoked in Last 30 Days: Yes Use of substances other than those prescribed or required for medical reasons: Yes Substance Use Type: Heroin Substance Use Frequency: Daily Advance Directives: No Advance Directives Information Provided: Yes Do you have a plan to hurt others: No Plan Meds Allergies Allergy/AdvReac Type Severity Reaction Status Date / Time No Known Allergies Allergy Verified 04/22/24 01:42 Active Medications: Current Medications Pharmacy Consult (Consult Rx Vancomycin Dosing) 1 each MISCELLANE DAILY PRN PRN Reason: Consult order Physical Exam 2 Vital Signs and Narrative: Vital Signs: Last Vital Signs Temp 98.1 F 04/22/24 03:19 Pulse 68 04/22/24 03:19 Resp 18 04/22/24 03:19 BP 107/72 04/22/24 03:19 Pulse Ox 97 04/22/24 03:19 O2 Del Method Room Air 04/22/24 03:19 BMI result Body Mass Index 25.8 Middle-aged male lying in bed in no distress Neck supple, no JVD Regular rate and rhythm, S1-S2 heard Regular breath sounds bilaterally, no wheezing or crackles appreciated Abdomen soft nontender, no guarding, no rigidity Patient is awake, alert and oriented to self, place, time and person ; no focal motor deficit Psych: Normal mood Right foot nonhealing wound with purulent foul-smelling discharge and surrounding erythema, warmth ; right finger with swelling, erythema and warmth Results Labs 04/22/24 02:20 04/22/24 02:20 Labs: Laboratory Results - last 24 hr 04/22/24 02:20 MCV 89.3 MCH 30.4 MCHC 34.0 RDW 12.3 Plt Count 184 MPV 11.2 Immature Gran % (Auto) 0.2 Neut % (Auto) 72.0 Lymph % (Auto) 20.9 [place] % (Auto) 4.3 Eos % (Auto) 2.2 Baso % (Auto) 0.4 Lymph # (Auto) 2.9 [place] # (Auto) 0.6 Eos # (Auto) 0.3 Baso # (Auto) 0.1 Abs Immat Gran (auto) 0.03 Absolute Neuts (auto) 10.0 H Absolute Nucleated RBC 0.000 Nucleated RBC % (auto) 0.0 ESR 40 H Anion Gap 16 Estim Creat Clear Calc 92.0 Estimated GFR > 60 Random Glucose 106 Lactic Acid 1.0 Calcium 10.8 H Total Bilirubin 0.3 AST 20 ALT 15 Alkaline Phosphatase 132 H C-Reactive Protein 2.83 H Total Protein 9.2 H Albumin 4.9 Lipase 13 Imaging Radiologist's Impressions: Impressions Foot X-Ray 04/22/24 04:35 IMPRESSION: Prominent soft tissue swelling throughout the dorsum of the foot. No convincing findings of osteomyelitis. Since radiographic sensitivity for early osteomyelitis is relatively limited, however, consider further evaluation with MRI if clinically warranted. Electronically signed by: Steve Bella MD 04/22/2024 05:25 AM EDT Assessment and Plan (1) Cellulitis of foot, right: Status: Acute (2) IV drug user: Status: Acute Plan This is a 43-year-old male with pertinent history of IV drug use disorder who presents to the emergency department for concerns of right foot infection. #. Right foot nonhealing wound with purulent cellulitis: Will admit patient with IV vancomycin due to extensive cellulitis. Consulting General surgery for possible debridement. Obtaining MRI to delineate underlying anatomy and rule out osteomyelitis. Wound care consult. No sepsis. Blood culture pending #. Right finger cellulitis: Obtaining imaging. May need ortho consult #. IV drug use disorder: Monitor for withdrawal. Consulting Addiction Team DVT prophylaxis: Lovenox Full code Admit as inpatient and will require two night minimum hospital stay for IV antibiotics (as above), which is not possible in a lesser acute setting. Quality Stroke Does the patient have a stroke diagnosis?: No VTE Prior VTE?: No VTE Risk Level:: Medical - moderate - high VTE Device Contraindication: Treatment Not Indicated VTE Drug Contraindication: N/A - Med Ordered
[2024-04-22 06:18] VITALS: BP 108/63; PULSE 65; RESP 16; TEMP 36.6; O2SAT 98
[2024-04-22] MEDS: 0.9 % Sodium Chloride 1,000 ML 999 ML IV (06:22)
[2024-04-22 07:03] LABS: Amphetamine Screen Urine Not Detected (Not Detect); Barbiturates, Urine Not Detected (Not Detect); Benzodiazepines Screen Urine Not Detected (Not Detect); Buprenorphine Scr Not Detected (Not Detect); Cannabinoid Screen Urine Not Detected (Not Detect); Cocaine Screen Urine Not Detected (Not Detect); Fentanyl, urine POSITIVE (Not Detect); Methadone Screen, Urine Not Detected (Not Detect); Opiate Screen Urine POSITIVE (Not Detect); Oxycodone Screen Urine Not Detected (Not Detect); Phencyclidine Screen Urine Not Detected (Not Detect)
--- NOTE | 2024-04-22 07:19 | PC.NURSE ---
Care of Pt assumed at change of shift. Pt is resting quietly on bed, NAD. Breakfast tray given. IV Vanco started per OCT. Awaiting delivery of Lovenox from Pharmacy (pyxis supply is 0.
--- NOTE | 2024-04-22 07:48 | PHA.PROG ---
Admission Date/Time: April 22, 2024 05:59 Indication: skin + skin structure Weight in k.11 kg Adjusted body weight in Kg: Mccall body weight in Kg: Obesity Dosing Indication % IBW: BMI 25.8 Serum Creatinine - Last 168 Hours 04/22/24 02:20 Creatinine 0.98 Estimated CrCl and GFR - Last 168 Hours 04/22/24 02:20 Estim Creat Clear Calc 92.0 Estimated GFR > 60 Vancomycin Loading Dose: 2000 x1 Current Vancomycin Dosing Regimen: 1000mg Q12H Vancomycin Monitoring using AUC goal of 400 - 600 range with trough as surrogate marker: 498 Date and Time for next Vancomycin Level to be drawn: 04/22 @1800 Pharmacist Comments on Vancomycin Plan: patient's renal appears stable. pt got a 1 gm load instead of 2 gms so 1 gm was added to complete load. starting off with 1000mg Q12H, predicted trough 15.5 Vancomycin dosing will take advantage of [employer] as a clinical decision support tool that uses Bayesian modeling to calculate individual patient's pharmacokinetic parameters and forecast the patient's drug concentration time course with the target goal AUC 24 range of 400 - 600 mg/L/hr.
--- NOTE | 2024-04-22 08:43 | PHA.MEDREC ---
Pharmacy Consult ? Medication Reconciliation Pharmacy has completed the medication reconciliation. Spoke with patient at bedtime to confirm pt takes no at home medications.
--- NOTE | 2024-04-22 08:51 | PM.CNGS ---
History of Present Illness Consult details Consult date: 04/22/24 Requesting physician: Catherine Bae Narrative: 43-year-old male with PMH significant for IV drug use disorder who presented to the ED for concerns of right foot infection. He has had a wound of the right foot for about a year. It initially began following injecting IV drugs and he admits to still occasionally injecting drugs at the wound site. He is seen for this weekly at the [facility]ound clinic. He reports they did some debridement at his last on 04/13 visit, however, the wound began to have foul-smelling drainage with swelling of his foot and leg over the last few days prompting him to seek evaluation. He was found to have a leukocytosis of 13.9. Foot xray showed soft tissue swelling, no evidence of osteomyelitis. He was admitted to the hospitalist service for cellulitis of the right foot. Right foot MRI has been ordered. General surgery was asked to evaluate the patient for possible debridement. He also has erythema and edema of right third finger. He states this began as paper cut but it has worsened over the past few days. Review of Systems Constitutional: Constitutional: Denies chills and Denies fever(s) ENT: Denies dizziness Cardiovascular: Cardiovascular: Denies chest pain and Denies dyspnea Respiratory: Respiratory: Denies dyspnea Gastrointestinal: Gastrointestinal: Denies abdominal pain, Denies nausea and Denies vomiting Integumentary/Breasts: Skin/Breast: Denies jaundice Neurologic: Denies dizziness PMF Past Medical History Medical History IV drug user Social History Social History (System 04/22/24 @ 08:08 by Lindsey Collins) Household Members: Spouse Housing: Apartment Do you presently have visiting nurse or other home services: No Patient Tobacco Use Status: Current everyday Tobacco user Tobacco use type: Cigarette Cigarette Packs Per Day: 1 Cigarettes Per Day: 20.0 Years Smoked: 5 e-Cigarette/Vaping Use: Former Use Second Hand Smoke Exposure: Yes () Substance Use Type: Heroin service: No Meds Allergies Allergy/AdvReac Type Severity Reaction Status Date / Time No Known Allergies Allergy Verified 04/22/24 08:08 Active Medications: Current Medications Acetaminophen (Acetaminophen 325 Mg Tablet) 650 mg PO Q6H PRN PRN Reason: Pain, Mild (Pain Scale 1-3), fever or headache Calcium Carbonate (Calcium Carbonate 750 Mg Tab.Chew) 750 mg PO Q4H PRN PRN Reason: Heartburn Enoxaparin Sodium (Enoxaparin Sodium 40 Mg/0.4 Ml Syringe) 40 mg SUBCUT Q24H OLIVE Vancomycin HCl 1,000 mg/ (Sodium Chloride) 270 mls @ 270 mls/hr IV Q12H OLIVE Magnesium Hydroxide (Milk Of Magnesia 30 Ml Oral.Susp) 30 ml PO DAILY PRN PRN Reason: Constipation Melatonin (Melatonin 3 Mg Tablet) 6 mg PO BEDTIME PRN PRN Reason: Insomnia Pharmacy Consult (Consult Rx Vancomycin Dosing) 1 each MISCELLANE DAILY PRN PRN Reason: Consult order Sodium Chloride (0.9 % Sodium Chloride Flush 3 Ml Syringe) 3 ml IVFLUSH QSHIFT [facility] Home Medications ?Medication ?Instructions ?Recorded ?Confirmed ?Last Taken ?Type No Known Home Meds 11/07/23 04/22/24 Unknown History Physical Exam Vital Signs: Vital Signs: Last Vital Signs Temp 97.9 F 04/22/24 06:18 Pulse 65 04/22/24 06:18 Resp 16 04/22/24 06:18 BP 108/63 04/22/24 06:18 Pulse Ox 98 04/22/24 06:18 O2 Del Method Room Air 04/22/24 06:18 BMI result Body Mass Index 25.8 Const: General: comfortable, no acute distress and alert Orientation/consciousness: patient oriented x3 Resp: Effort & Inspection: normal respiratory effort Neuro: General: patient oriented x3 and moves all extremities Extrem: Other: right foot with large open wound measuring 8cm x 5cm overall clean appearing without purulent drainage, fluctuance, chronic granulation tissue noted at the wound base with some fibrinous exudate, mild surrounding edema extending both proximally and distally, no significant surrounding erythema right third finger with edema and erythema with possible fluctuance over the PIP Results Labs 04/23/24 08:45 04/22/24 02:20 Labs: Abnormal lab results 04/22/24 04/22/24 Range/Units 02:20 06:42 WBC 13.9 H (4.8-10.8) X10*3/uL Absolute Neuts (auto) 10.0 H (2.0-8.3) x10*3/uL ESR 40 H (0-15) MM/HR Calcium 10.8 H (8.4-10.2) mg/dL Alkaline Phosphatase 132 H (39-117) U/L C-Reactive Protein 2.83 H (< or = 0.50) mg/dL Total Protein 9.2 H (6.5-8.0) g/dL Urine Opiates Screen POSITIVE H (Not Detect) Urine Fentanyl Screen POSITIVE H (Not Detect) Short CBC 04/22/24 Range/Units 02:20 WBC 13.9 H (4.8-10.8) X10*3/uL Hgb 15.9 (14.0-18.0) g/dl Hct 46.7 (42.0-52.0) % Plt Count 184 (160-400) X10*3/uL BMP 04/22/24 02:20 Sodium 139 Potassium 4.1 Chloride 99 Carbon Dioxide 28 BUN 14 Creatinine 0.98 Calcium 10.8 H Liver Function 04/22/24 Range/Units 02:20 Total Bilirubin 0.3 (0.0-1.0) mg/dL AST 20 (5-37) U/L ALT 15 (0-40) U/L Alkaline Phosphatase 132 H (39-117) U/L Albumin 4.9 (3.5-5.0) g/dL All other labs normal. Assessment and Plan (1) Cellulitis of foot, right: Status: Acute (2) Wound, open, foot: Qualifiers: Encounter type: initial encounter Laterality: right Qualified Code(s): S91.301A - Unspecified open wound, right foot, initial encounter Status: Acute (3) IV drug user: Status: Acute Plan 43-year-old male with PMH significant for IV drug use disorder, chronic right foot wound admitted for right foot cellulitis. The right foot wound is generally clean appearing without areas of necrosis however he does have chronic granulation tissue of the wound base and some fibrinous exudate which was sharply debrided with a curette at bedside. Wet to dry fluff followed by dry fluffs and kerlix placed. Encouraged right foot elevation. MRI R foot pending. Cont daily wound care. He does have cellulitis and possible abscess of his right finger. Recommend ortho/hand surgery consult. Procedures Date of Service Date of Service: 04/23/24
[2024-04-22] MEDS: 0.9 % Sodium Chloride Flush 3 ML SYRINGE IVFLUSH ×2 (09:19→16:46)
[2024-04-22] MEDS: Enoxaparin Sodium 40 MG/0.4 ML SYRINGE SUBCUT (09:20)
--- NOTE | 2024-04-22 09:29 | PC.NURSE ---
MRI screening form completed and scanned to MRI Dept. Form can be located in Pt physical chart. Pt agreeable to property search by security. Security notified.
[2024-04-22 10:57] VITALS: BP 135/78; PULSE 65; RESP 16; TEMP 36.6; O2SAT 97
[2024-04-22] MEDS: methADONE HCl 20 MG/2 ML ORAL.CONC 30 MG PO (11:36)
[2024-04-22] MEDS: gadobutroL 7.5 ML VIAL IVPUSH (13:44)
--- NOTE | 2024-04-22 14:35 | HO.ADDICT_ITS ---
History of Present Illness Date of Service: 04/22/2024 Chief Complaint: Foot infection Reason for Consult: OUD Sources of Information: patient interviewed and chart reviewed HPI Narrative: Patient is a 43 year old male medically admitted with cellulitis to the foot Reporting current heroin/fentanyl use. Seen in room 19 of main ED--awating transfer to [facility] floor. Patient awake, alert, engaged in interview Soft spoken. Reporting he is using btwn 2-3 bundles of heroin/fentanyl daily IV Denies any alcohol use Not currently engaged in treatment for OUD, but has been past. Reporting last use was about a day ago He is noted to be yawning with lacrimation and rhinorrea He reports chills, and mild body aches methadone 30mg ordered and administered with + effect as patient was seen in follow up withdrawal sx have improved Review of Systems Constitutional: Reports as per HPI Diagnostics Vital Signs (24Hr): Vital Signs - 24 hr 04/22/24 01:35 04/22/24 03:19 04/22/24 06:18 Temperature 98.3 F 98.1 F 97.9 F Pulse Rate 71 68 65 Respiratory Rate 18 18 16 Blood Pressure 127/85 107/72 108/63 Pulse Oximetry 100 97 98 Oxygen Delivery Method Room Air Room Air Room Air 04/22/24 10:57 Temperature 97.8 F Pulse Rate 65 Respiratory Rate 16 Blood Pressure 135/78 Pulse Oximetry 97 Oxygen Delivery Method Room Air BMI result Body Mass Index 25.8 Labs 04/22/24 02:20 04/22/24 02:20 Labs: Laboratory Results - last 48 hr 04/22/24 04/22/24 02:20 06:42 WBC 13.9 H RBC 5.23 Hgb 15.9 Hct 46.7 MCV 89.3 MCH 30.4 MCHC 34.0 RDW 12.3 Plt Count 184 MPV 11.2 Immature Gran % (Auto) 0.2 Neut % (Auto) 72.0 Lymph % (Auto) 20.9 Terrell % (Auto) 4.3 Eos % (Auto) 2.2 Baso % (Auto) 0.4 Lymph # (Auto) 2.9 Terrell # (Auto) 0.6 Eos # (Auto) 0.3 Baso # (Auto) 0.1 Abs Immat Gran (auto) 0.03 Absolute Neuts (auto) 10.0 H Absolute Nucleated RBC 0.000 Nucleated RBC % (auto) 0.0 ESR 40 H Sodium 139 Potassium 4.1 Chloride 99 Carbon Dioxide 28 Anion Gap 16 BUN 14 Creatinine 0.98 Estim Creat Clear Calc 92.0 Estimated GFR > 60 Random Glucose 106 Lactic Acid 1.0 Calcium 10.8 H Total Bilirubin 0.3 AST 20 ALT 15 Alkaline Phosphatase 132 H C-Reactive Protein 2.83 H Total Protein 9.2 H Albumin 4.9 Lipase 13 Urine Opiates Screen POSITIVE H Ur Buprenorphine Scrn Not Detected Ur Oxycodone Screen Not Detected Urine Methadone Screen Not Detected Urine Fentanyl Screen POSITIVE H Ur Barbiturates Screen Not Detected Ur Phencyclidine Scrn Not Detected Ur Amphetamines Screen Not Detected U Benzodiazepines Scrn Not Detected Urine Cocaine Screen Not Detected U Marijuana (THC) Screen Not Detected Imaging Radiology Impressions: ITS Impressions Foot X-Ray 04/22/24 04:35 IMPRESSION: Prominent soft tissue swelling throughout the dorsum of the foot. No convincing findings of osteomyelitis. Since radiographic sensitivity for early osteomyelitis is relatively limited, however, consider further evaluation with MRI if clinically warranted. Electronically signed by: Steve Bella MD 04/22/2024 05:25 AM EDT RP Mental Status Exam Mental Status Exam Patient Appearance: Appropriate Level of Consciousness: Awake, Appropriate and Alert Patient Behavior: Appropriate Mood Description: Calm Affect Description: Calm Medications Medications Current Medications Acetaminophen (Acetaminophen 325 Mg Tablet) 650 mg PO Q6H PRN PRN Reason: Pain, Mild (Pain Scale 1-3), fever or headache Calcium Carbonate (Calcium Carbonate 750 Mg Tab.Chew) 750 mg PO Q4H PRN PRN Reason: Heartburn Enoxaparin Sodium (Enoxaparin Sodium 40 Mg/0.4 Ml Syringe) 40 mg SUBCUT Q24H [facility] Last Admin: 04/22/24 09:20 Dose: 40 mg Vancomycin HCl 1,000 mg/ (Sodium Chloride) 270 mls @ 270 mls/hr IV Q12H [facility] Magnesium Hydroxide (Milk Of Magnesia 30 Ml Oral.Susp) 30 ml PO DAILY PRN PRN Reason: Constipation Melatonin (Melatonin 3 Mg Tablet) 6 mg PO BEDTIME PRN PRN Reason: Insomnia Pharmacy Consult (Consult Rx Vancomycin Dosing) 1 each MISCELLANE DAILY PRN PRN Reason: Consult order Sodium Chloride (0.9 % Sodium Chloride Flush 3 Ml Syringe) 3 ml IVFLUSH QSHIFT [facility] Last Admin: 04/22/24 09:19 Dose: 3 ml Allergies Allergies Allergy/AdvReac Type Severity Reaction Status Date / Time No Known Allergies Allergy Verified 04/22/24 08:08 Assessment & Plan Assessment & Plan (1) Opioid use disorder: Status: Acute Code(s): F11.90 - Opioid use, unspecified, uncomplicated Assessment and Plan: * methadone 10mg PRN * methadone 40mg in AM * will continue to follow and refer to OTP if patient would like to continue treatment at time of discharge Total time managing care of this patient today _35___ minutes. PMFSH Past Medical History Medical History IV drug user Social History Social History (System 04/22/24 @ 08:08 by Lindsey Collins) Patient Tobacco Use Status: Current everyday Tobacco user Substance Use Type: Heroin service: No
[2024-04-22 15:20] VITALS: BP 141/96; PULSE 68; RESP 20; TEMP 36.2; O2SAT 99
--- NOTE | 2024-04-22 16:30 | MHC.CM.PN ---
PT REPORTS HE LIVES WITH HIS AND IS INDEPENDENT WITH CARE PT HAS NO DME AND NO SERVICES PT SAYS HE HAS COMPLETED A HCP IN THE PAST, COPY REQUESTED PCP AT [facility] IN [place] DCP: HOME NO SERVICES VIA PRIVATE TRANSPORT
[2024-04-22 17:13] VITALS: BMI 27.1
[2024-04-22 19:10] VITALS: BP 148/84; PULSE 67; RESP 20; TEMP 36.2; O2SAT 97
[2024-04-22] MEDS: methADONE HCl 20 MG/2 ML ORAL.CONC 10 MG PO (20:54)
--- NOTE | 2024-04-23 | ECG_ITS ---
Test Reason : methadone titration Blood Pressure : / mmHG Vent. Rate : 066 BPM Atrial Rate : 066 BPM P-R Int : 148 ms QRS Dur : 088 ms QT Int : 422 ms P-R-T Axes : 052 043 062 degrees QTc Int : 442 ms Normal sinus rhythm Normal ECG No previous ECGs available Referred By: Lisa Woodall Electronically Signed By:NUNO CARRILLO
[2024-04-23] MEDS: Melatonin 3 MG TABLET 6 MG PO (01:49)
[2024-04-23 04:00] VITALS: BP 149/93; PULSE 70; RESP 18; TEMP 36.4; O2SAT 97
[2024-04-23] MEDS: Enoxaparin Sodium 40 MG/0.4 ML SYRINGE SUBCUT (05:12)
[2024-04-23 07:02] VITALS: BP 149/90; PULSE 75; RESP 17; TEMP 36.6; O2SAT 99
[2024-04-23 09:00] LABS: Basophils Percent Auto 0.3 % (0-2); Eosinophils Absolute Auto 0.1 X10*3/uL (0.0-0.4); Eosinophils Percent Auto 0.6 % (0-4); Hematocrit 41.9 % (42.0-52.0); Hemoglobin 14.4 g/dl (14.0-18.0); Imm Gran Abs Auto 0.19 X10*3/uL (0.00-0.03); Lymphocytes Absolute Auto 1.8 X10*3/uL (1.2-4.9); Lymphocytes Percent Auto 18.8 % (20-40); MANUAL DIFF FLAG SCAN; Mean Corpuscular HGB Conc 34.4 g/dl (31.0-36.0); Mean Corpuscular Hemoglobin 30.2 pg (27.0-33.0); Mean Corpuscular Volume 87.8 fL (80.0-98.0); Monocytes Absolute Auto 0.6 X10*3/uL (0.1-1.2); Monocytes Percent Auto 6.1 % (2-11); Neutrophils Absolute Auto 6.9 x10*3/uL (2.0-8.3); Neutrophils Percent Auto 72.2 % (45-73); PLT CLUMP 1; Red Blood Count 4.77 X10*6/uL (4.60-5.80); Red Cell Distribution Width 11.9 % (11.0-16.0); SCAN SMEAR FLAG 1
[2024-04-23] MEDS: vancomycin HCL 1,000 MG in 0.9 % Sodium Chloride 250 ML 270 MG IV (09:00)
[2024-04-23] MEDS: methADONE HCl 20 MG/2 ML ORAL.CONC 40 MG PO (09:01)
[2024-04-23] MEDS: 0.9 % Sodium Chloride Flush 3 ML SYRINGE IVFLUSH ×2 (09:01→16:20)
[2024-04-23 09:36] LABS: Mean Platelet Volume 11.9 fL (9.4-12.4); Platelet Count 162 X10*3/uL (160-400); SLIDE REVIEW VERIFIED; White Blood Count 9.6 X10*3/uL (4.8-10.8)
[2024-04-23] MEDS: methADONE HCl 20 MG/2 ML ORAL.CONC 10 MG PO (12:52)
--- NOTE | 2024-04-23 13:27 | MHC.RECOVRN ---
Met with pt to follow up and provide support after methadone initiation yesterday. Pt sitting in chair, awake, alert, engages in conversation, present with pts permission. Pt received 40 mg methadone this morning. Pt reports feeling a little better however, continues to endorse feeling hot/cold as well as inability to sleep. Pt would like to continue methadone titration and be connected to [facility] in [place]. Pt denies other questions or concerns for t/w. Discussed with Lisa Woodall APRN. Referral sent to [facility].
--- NOTE | 2024-04-23 13:29 | PM.PNORT ---
Subjective Subjective Date of Service: 04/23/24 Interval history: 43-year-old male with past medical history significant for IVDU, ortho consulted for redness, swelling, purulence of the dorsal right middle finger Patient is resting comfortably in chair at this time Patient reports that redness and swelling have improved significantly overnight Patient reports that the focal area of purulence on the dorsal aspect of the middle phalanx of the right middle finger appeared overnight Patient denies any injecting into the right hand States that medicine encouraged him to start warm water soaks, but he has not done so yet States that range of motion of the right hand is full and intact, painless Patient reports normal sensation to the right hand No other acute complaints or concerns Physical Exam Vital Signs: Vital Signs: Last Vital Signs Temp 98 F 04/23/24 07:02 Pulse 75 04/23/24 07:02 Resp 17 04/23/24 07:02 BP 149/90 H 04/23/24 07:02 Pulse Ox 99 04/23/24 07:02 O2 Del Method Room Air 04/23/24 07:02 BMI result Body Mass Index 27.1 Extrem: Other: Patient is alert, oriented, and in no acute distress. Neuro: Patient reports normal sensation of the tips of all digits of the right hand at this time Vascular: Cap refill brisk Pain: Patient reports mild to moderate tenderness to palpation about the focal area of purulence with surrounding cellulitis on the dorsal middle phalanx of the right middle finger No tenderness to palpation over the flexor tendon of the right middle finger ROM: Patient is able to make a closed fist and extend fingers fully without difficulty Skin: There is noted to be a focal area of purulence on the dorsal aspect of the middle phalanx of the right middle finger with surrounding erythema consistent with cellulitis, not open or draining. No erythema or edema of the volar aspect of the right middle finger noted Psych: Appears grossly normal Affect normal Attitude cooperative Procedures Date of Service Date of Service: 04/23/24 Progress Note: A&P Assessment and plan (1) Abscess of right middle finger: Status: Acute Plan 1. Abscess of dorsal right middle finger Patient is discussed with Dr. Feliciano, and a collaborative treatment plan was formed: Patient is advised to start warm water soaks to encourage drainage of the area of purulence If area has not drained by tomorrow a.m., we will proceed with lancing the purulent area in order to express infectious material out Patient is amenable to this plan Continue with IV antibiotics per Medicine Continue with all other recommendations per Medicine Time Spent With Patient Time: Total time managing care of this patient today ____ minutes. Quality Stroke Does the patient have a stroke diagnosis?: No VTE Prior VTE?: No VTE Risk Level:: Medical - moderate - high VTE Device Contraindication: Treatment Not Indicated VTE Drug Contraindication: N/A - Med Ordered
--- NOTE | 2024-04-23 14:01 | MHC.RECOVRN ---
Please fax last dose letter when pt dc to [facility] at [phone].
--- NOTE | 2024-04-23 14:12 | P.PNIM_ITS ---
Subjective Subjective Date of Service: 04/23/24 Interval History: Being followed for right 3rd finger swelling and pain and right foot wound, denies fever, no chills, tolerating diet no nausea, no vomiting, no abdominal pain or diarrhea, no other acute issues overnight. Review of Systems All other symptoms are reviewed and are negative. Physical Exam 2 Vital Signs: Vital Signs: Last Vital Signs Temp 98 F 04/23/24 07:02 Pulse 75 04/23/24 07:02 Resp 17 04/23/24 07:02 BP 149/90 H 04/23/24 07:02 Pulse Ox 99 04/23/24 07:02 O2 Del Method Room Air 04/23/24 07:02 BMI result Body Mass Index 27.1 Const: Other: General awake alert x3, in no acute distress. Neck no JVD. CVS regular rate rhythm, Respiratory lungs clear to auscultation, no respiratory distress, no wheeze, no rhonchi. Gastrointestinal abdomen soft, non tender, bowel sounds audible Extremities right foot dressing in place, no drainage noted Right 3rd finger with erythema and small pustule with no surrounding fluctuation Neuro non focal Psych appropriate affect Objective Data Active Medications Acetaminophen (Acetaminophen 325 Mg Tablet) 650 mg PO Q6H PRN PRN Reason: Pain, Mild (Pain Scale 1-3), fever or headache Calcium Carbonate (Calcium Carbonate 750 Mg Tab.Chew) 750 mg PO Q4H PRN PRN Reason: Heartburn Enoxaparin Sodium (Enoxaparin Sodium 40 Mg/0.4 Ml Syringe) 40 mg SUBCUT Q24H [facility] Last Admin: 04/23/24 05:12 Dose: 40 mg Documented By: PARAS Vancomycin HCl 1,000 mg/ (Sodium Chloride) 270 mls @ 270 mls/hr IV Q12H [facility] Last Infusion: 04/23/24 10:00 Dose: Infused Documented By: KENY Magnesium Hydroxide (Milk Of Magnesia 30 Ml Oral.Susp) 30 ml PO DAILY PRN PRN Reason: Constipation Melatonin (Melatonin 3 Mg Tablet) 6 mg PO BEDTIME PRN PRN Reason: Insomnia Last Admin: 04/23/24 01:49 Dose: 6 mg Documented By: PARAS Methadone HCl (Methadone Hcl 20 Mg/2 Ml Oral.Conc) 40 mg PO DAILY [facility] Last Admin: 04/23/24 09:01 Dose: 40 mg Documented By: KENY Co-signed By: ARDEN Pharmacy Consult (Consult Rx Vancomycin Dosing) 1 each MISCELLANE DAILY PRN PRN Reason: Consult order Sodium Chloride (0.9 % Sodium Chloride Flush 3 Ml Syringe) [address] [facility] Last Admin: 04/23/24 09:01 Dose: 3 ml Documented By: KENY Labs 04/23/24 08:45 04/22/24 02:20 Labs: Laboratory Results - last 24 hr 04/23/24 08:45 MCV 87.8 MCH 30.2 MCHC 34.4 RDW 11.9 Plt Count 162 MPV 11.9 Immature Gran % (Auto) 2.0 H Neut % (Auto) 72.2 Lymph % (Auto) 18.8 L Shelby % (Auto) 6.1 Eos % (Auto) 0.6 Baso % (Auto) 0.3 Lymph # (Auto) 1.8 Shelby # (Auto) 0.6 Eos # (Auto) 0.1 Baso # (Auto) 0.0 Abs Immat Gran (auto) 0.19 H Absolute Neuts (auto) 6.9 Absolute Nucleated RBC 0.000 Nucleated RBC % (auto) 0.0 Smear Tech's Comments VERIFIED Microbiology Microbiology Results: Microbiology 04/22/24 02:20 Blood Culture - Preliminary Blood - Venous No growth after 24 hours. 04/22/24 02:20 Blood Culture - Preliminary Blood - Venous No growth after 24 hours. Assessment and Plan (1) Abscess of right middle finger: Status: Acute (2) Opioid use disorder: Status: Acute (3) Cellulitis of foot, right: Status: Acute (4) IV drug user: Status: Acute (5) Wound, open, foot: Status: Acute Plan 43-year-old male with pertinent history of IV drug use disorder who presents to the emergency department for concerns of right foot infection. #. Right foot nonhealing wound with purulent cellulitis: Continue IV vancomycin day 2 , WBC normalized, blood cultures x2 negative times 24 hours Seen by General surgery underwent sharp bedside debridement, will continue wet-to-dry dressing MRI foot showed large skin ulcer dorsum of forefoot/midfoot, no abscess or osteomyelitis noted. #. Right finger cellulitis/abscess: Seen by orthopedic surgeon recommended warm water soaks to encourage drainage of the purulent area, if not drained by tomorrow will undergo i/d #. IV drug use disorder: Being followed by Addiction Team receive methadone, further titration as per Addiction Team. DVT prophylaxis: Lovenox Full code Patient will require continued inpatient hospitalization for IV antibiotic and management of right finger abscess/cellulitis Quality Stroke Does the patient have a stroke diagnosis?: No VTE Prior VTE?: No VTE Risk Level:: Medical - moderate - high VTE Device Contraindication: Treatment Not Indicated VTE Drug Contraindication: N/A - Med Ordered
[2024-04-23 15:01] VITALS: BP 142/82; PULSE 63; RESP 20; TEMP 36.2; O2SAT 97
--- NOTE | 2024-04-23 16:22 | HO.ADDICTPRO ---
Subjective Subjective Date of Service: 04/23/24 Reason For Visit: Foot infection Interim History: Patient seen in follow up Receieved total of 40mg methadone yesterday 04/22 Today 40mg in the morning and due to ongoing withdrawal sx, received an additional 10mg in the afternoon Seen late afternoon. Sitting up in recliner. Awake, alert, pleasant. Reporting additional methadone was helpful Sleep was poor. Reporting he may be discharging tomorrow Review of Systems Constitutional: Reports as per HPI Mental Status Exam Mental Status Exam Patient Appearance: Appropriate Level of Consciousness: Awake and Alert Patient Behavior: Appropriate Diagnostics Vital Signs (24Hr): Vital Signs - 24 hr 04/22/24 19:10 04/23/24 04:00 04/23/24 07:02 Temperature 97.2 F 97.5 F 98 F Pulse Rate 67 70 75 Respiratory Rate 20 18 17 Blood Pressure 148/84 H 149/93 H 149/90 H Pulse Oximetry 97 97 99 Oxygen Delivery Method Room Air Room Air Room Air 04/23/24 15:01 Temperature 97.1 F Pulse Rate 63 Respiratory Rate 20 Blood Pressure 142/82 H Pulse Oximetry 97 Oxygen Delivery Method Room Air BMI result Body Mass Index 27.1 Labs 04/23/24 08:45 04/22/24 02:20 Labs: Laboratory Results - last 48 hr 04/22/24 04/22/24 04/23/24 02:20 06:42 08:45 WBC 13.9 H 9.6 RBC 5.23 4.77 Hgb 15.9 14.4 Hct 46.7 41.9 L MCV 89.3 87.8 MCH 30.4 30.2 MCHC 34.0 34.4 RDW 12.3 11.9 Plt Count 184 162 MPV 11.2 11.9 Immature Gran % (Auto) 0.2 2.0 H Neut % (Auto) 72.0 72.2 Lymph % (Auto) 20.9 18.8 L Dawes % (Auto) 4.3 6.1 Eos % (Auto) 2.2 0.6 Baso % (Auto) 0.4 0.3 Lymph # (Auto) 2.9 1.8 Dawes # (Auto) 0.6 0.6 Eos # (Auto) 0.3 0.1 Baso # (Auto) 0.1 0.0 Abs Immat Gran (auto) 0.03 0.19 H Absolute Neuts (auto) 10.0 H 6.9 Absolute Nucleated RBC 0.000 0.000 Nucleated RBC % (auto) 0.0 0.0 Smear Tech's Comments VERIFIED ESR 40 H Sodium 139 Potassium 4.1 Chloride 99 Carbon Dioxide 28 Anion Gap 16 BUN 14 Creatinine 0.98 Estim Creat Clear Calc 92.0 Estimated GFR > 60 Random Glucose 106 Lactic Acid 1.0 Calcium 10.8 H Total Bilirubin 0.3 AST 20 ALT 15 Alkaline Phosphatase 132 H C-Reactive Protein 2.83 H Total Protein 9.2 H Albumin 4.9 Lipase 13 Urine Opiates Screen POSITIVE H Ur Buprenorphine Scrn Not Detected Ur Oxycodone Screen Not Detected Urine Methadone Screen Not Detected Urine Fentanyl Screen POSITIVE H Ur Barbiturates Screen Not Detected Ur Phencyclidine Scrn Not Detected Ur Amphetamines Screen Not Detected U Benzodiazepines Scrn Not Detected Urine Cocaine Screen Not Detected U Marijuana (THC) Screen Not Detected Imaging Radiology Impressions: ITS Impressions Foot X-Ray 04/22/24 04:35 IMPRESSION: Prominent soft tissue swelling throughout the dorsum of the foot. No convincing findings of osteomyelitis. Since radiographic sensitivity for early osteomyelitis is relatively limited, however, consider further evaluation with MRI if clinically warranted. Electronically signed by: Steve Bella MD 04/22/2024 05:25 AM EDT RP Foot MRI 04/22/24 12:16 IMPRESSION: 1. Large skin ulcer at the dorsal aspect of the forefoot and midfoot with underlying cellulitis. No abscess. No convincing evidence of osteomyelitis. Mild marrow edema signal in the dorsolateral aspect of the cuboid is most likely reactive in nature. 2. Vzan-[id number] osteoarthritis at the first MTP joint. Electronically signed by: Mariano Eng MD 04/22/2024 03:02 PM EDT RP Medications Medications Current Medications Acetaminophen (Acetaminophen 325 Mg Tablet) 650 mg PO Q6H PRN PRN Reason: Pain, Mild (Pain Scale 1-3), fever or headache Calcium Carbonate (Calcium Carbonate 750 Mg Tab.Chew) 750 mg PO Q4H PRN PRN Reason: Heartburn Enoxaparin Sodium (Enoxaparin Sodium 40 Mg/0.4 Ml Syringe) 40 mg SUBCUT Q24H [facility] Last Admin: 04/23/24 05:12 Dose: 40 mg Vancomycin HCl 1,000 mg/ (Sodium Chloride) 270 mls @ 270 mls/hr IV Q12H [facility] Last Infusion: 04/23/24 10:00 Dose: Infused Magnesium Hydroxide (Milk Of Magnesia 30 Ml Oral.Susp) 30 ml PO DAILY PRN PRN Reason: Constipation Melatonin (Melatonin 3 Mg Tablet) 6 mg PO BEDTIME PRN PRN Reason: Insomnia Last Admin: 04/23/24 01:49 Dose: 6 mg Methadone HCl (Methadone Hcl 20 Mg/2 Ml Oral.Conc) 60 mg PO DAILY [facility] Mirtazapine (Mirtazapine 7.5 Mg Tablet) 7.5 mg PO BEDTIME [facility] Pharmacy Consult (Consult Rx Vancomycin Dosing) 1 each MISCELLANE DAILY PRN PRN Reason: Consult order Sodium Chloride (0.9 % Sodium Chloride Flush 3 Ml Syringe) 3 ml IVFLUSH QSHIFT [facility] Last Admin: 04/23/24 16:20 Dose: 3 ml Allergies Allergies Allergy/AdvReac Type Severity Reaction Status Date / Time No Known Allergies Allergy Verified 04/22/24 08:08 Assessment & Plan Assessment & Plan (1) Opioid use disorder: Status: Acute Code(s): F11.90 - Opioid use, unspecified, uncomplicated Assessment and Plan: EKG due to dose titration methadone dose 60mg in AM mirtazipine 7.5mg at bedtime to assist with sleep Will follow up with [facility] upon discharge--please provide with last dose letter at discharge Total time managing care of this patient today _15___ minutes.
[2024-04-23 18:56] LABS: Anion Gap 16 (12-20); Blood Urea Nitrogen 13 mg/dL (9-16); Calcium 9.8 mg/dL (8.4-10.2); Carbon Dioxide 19 mmol/L (22-29); Chloride 109 mmol/L (96-108); Creatinine Clr Calc Pharmacy 117.2; Estimated Glomerular Filt Rate > 60; Glucose Random 108 mg/dL (60-115); Potassium 4.2 mmol/L (3.3-5.1); Sodium 140 mmol/L (135-145)
[2024-04-23 19:02] LABS: Vancomycin Random 9.4 mcg/mL (15-20)
--- NOTE | 2024-04-23 19:12 | HE.PHANOTE ---
VANCO DOSE ADJUSTMENT BASED ON SCR AND TROUGH OF 9.4 DOSE INCREASED TO 1250 Q 12H. NEXT LEVEL 04/25 @ 0600
[2024-04-23] MEDS: vancomycin HCL 1,250 MG in 0.9 % Sodium Chloride 250 ML 166.67 MG IV (19:49)
[2024-04-23 20:00] VITALS: BP 147/83; PULSE 68; RESP 16; TEMP 36.1; O2SAT 98
[2024-04-24] VITALS: PULSE 86
[2024-04-24] MEDS: 0.9 % Sodium Chloride Flush 3 ML SYRINGE IVFLUSH ×2 (00:24→07:36)
[2024-04-24 03:33] VITALS: BP 161/94; PULSE 61; RESP 16; TEMP 36.1; O2SAT 99
[2024-04-24 03:58] VITALS: PULSE 61
--- NOTE | 2024-04-24 06:45 | PC.NURSE ---
patient refusing lovenod and labs
[2024-04-24] MEDS: methADONE HCl 20 MG/2 ML ORAL.CONC 60 MG PO (07:36)
[2024-04-24] MEDS: vancomycin HCL 1,250 MG in 0.9 % Sodium Chloride 250 ML 166.67 MG IV (07:37)
[2024-04-24 07:53] VITALS: BP 138/89; PULSE 68; RESP 18; TEMP 36.3; O2SAT 99
[2024-04-24 08:00] VITALS: PULSE 68
--- NOTE | 2024-04-24 08:06 | PM.PNORT ---
Subjective Subjective Date of Service: 04/24/24 Interval history: 43-year-old male with past medical history significant for IVDU, ortho consulted for redness, swelling, purulence of the dorsal right middle finger Patient is resting comfortably in chair at this time Patient reports that redness and swelling have improved significantly overnight Focal area of purulence present yesterday ruptured with warm salt water baths and drained, patient reports no purulence at this time Has continued warm water soaks States that range of motion of the right hand is full and intact, painless Patient reports normal sensation to the right hand No other acute complaints or concerns Physical Exam Vital Signs: Vital Signs: Last Vital Signs Temp 97.3 F 04/24/24 07:53 Pulse 68 04/24/24 07:53 Resp 18 04/24/24 07:53 BP 138/89 04/24/24 07:53 Pulse Ox 99 04/24/24 07:53 O2 Del Method Room Air 04/24/24 07:53 BMI result Body Mass Index 27.1 Extrem: Other: Patient is alert, oriented, and in no acute distress. Neuro: Patient reports normal sensation of the tips of all digits of the right hand at this time Vascular: Cap refill brisk Pain: Patient reports mild to moderate tenderness to palpation about the focal area of purulence with surrounding cellulitis on the dorsal middle phalanx of the right middle finger No tenderness to palpation over the flexor tendon of the right middle finger ROM: Patient is able to make a closed fist and extend fingers fully without difficulty Skin: There is noted to be a approximately 0.5 cm scabbed over area where the area of purulence was present yesterday, with some surrounding cellulitis, improved from yesterday Area is dry, no evidence of active drainage at this time No erythema or edema of the volar aspect of the right middle finger noted Psych: Appears grossly normal Affect normal Attitude cooperative Procedures Date of Service Date of Service: 04/24/24 Progress Note: A&P Assessment and plan (1) Abscess of right middle finger: Status: Acute Plan 1. Abscess of dorsal right middle finger Patient is discussed with Dr. Feliciano, and a collaborative treatment plan was formed: Patient is advised to continue warm water soaks to encourage any small areas of purulence still remaining to drain independently Due to spontaneous drainage with warm water soaks, no lancing was necessary. Patient is amenable to this plan Continue with IV antibiotics per Medicine Continue with all other recommendations per Medicine Follow-up with our office within 1 week of discharge from the hospital Time Spent With Patient Time: Total time managing care of this patient today ____ minutes. Quality Stroke Does the patient have a stroke diagnosis?: No VTE Prior VTE?: No VTE Risk Level:: Medical - moderate - high VTE Device Contraindication: Treatment Not Indicated VTE Drug Contraindication: N/A - Med Ordered
--- NOTE | 2024-04-24 09:53 | PM.DS ---
DS: Providers Provider Date of Service: 04/25/24 Date of admission: 04/22/24 05:59 Date of discharge: 04/24/24 Primary care physician: Tamir Reeder MD Consults: 04/22/24 05:59 Addiction Medicine Routine Consulting Provider: Addiction Covering Reason for consultation: heroin use disorder Consult to General Surgery Routine Consulting Provider[place] [facility] Reason for consultation: right foot cellulitis with non healing wound 04/23/24 07:54 Consult to Orthopedics Routine Consulting Provider: [facility] Reason for consultation: r third finger abscess Has provider been notified: No 04/24/24 02:05 Consult to Wound Care Routine Reason for consultation: R foot recurrent cellulitis and also finger pustule DS: Diagnosis Discharge Diagnosis (1) Abscess of right middle finger: Status: Acute DS: Summary Hospital Course Hospital Course: Date of Service: 04/22/24 Chief Complaint: Right foot infection This is a 43-year-old male with pertinent history of IV drug use disorder who presents to the emergency department for concerns of right foot infection. Patient states he has had right foot wound for about a year now. He follows up with wound care outpatient and has tried p.o. antibiotics. He endorses that he did inject IV drugs in his right foot. States the nonhealing wound has been draining foul-smelling pus over the last few days. Of note, patient was admitted in October 2023 for right foot cellulitis but left AMA. Also has right finger swelling, erythema, warmth and pain. No fever, chills, chest discomfort, palpitations, shortness of breath, abdominal pain, changes in urinary or bowel habits. In the emergency department, patient was initiated on empiric Zosyn and vancomycin. WBC elevated at 13.9. Hospital course: 43-year-old male with pertinent history of IV drug use disorder who presents to the emergency department for concerns of right foot infection, and admitted to [facility] with a diagnosis Right foot nonhealing wound with purulent cellulitis, treated with IV vancomycin, WBC normalized, blood cultures showed no growth patient evaluated by General surgery underwent sharp bedside debridement of wound and was continued on wet-to-dry dressing Wound is healing well with no drainage surrounding erythema has resolved therefore patient is being discharged home on by mouth antibiotics, recommend outpatient follow-up with wound clinic and continue wet-to-dry dressing, MRI foot showed large skin ulcer dorsum of forefoot/midfoot, no abscess or osteomyelitis noted. Patient also noted to have Right finger cellulitis/abscess,seen by orthopedic surgeon they recommended warm water soaks, abscess drained by itself did not require further intervention In regard to history of IV drug use was evaluated by Addiction Team and placed on methadone recommend outpatient follow-up at methadone clinic. Time Attestation Discharge Coordination Time (in mins): 38 Quality: Safe Use of Opioids Does Pt have an Active Cancer Diagnosis on the Problem List?: No Quality: Stroke Does the patient have a stroke diagnosis?: No Physical Exam Vital Signs: Vital Signs: Last Vital Signs Temp 97.3 F 04/24/24 07:53 Pulse 68 04/24/24 07:53 Resp 18 04/24/24 07:53 BP 138/89 04/24/24 07:53 Pulse Ox 99 04/24/24 07:53 O2 Del Method Room Air 04/24/24 07:53 BMI result Body Mass Index 27.1 Const: Other: General awake alert x3, in no acute distress. Neck no JVD. CVS regular rate rhythm, Respiratory lungs clear to auscultation, no respiratory distress, no wheeze, no rhonchi. Gastrointestinal abdomen soft, non tender, bowel sounds audible Extremities right foot wound, wound base with chronic granulation, no foul odor, no discharge noted, surrounding erythema resolved. Right 3rd finger with mild erythema , no induration, no fluctuation, good range of motion. Neuro non focal Psych appropriate affect DS: Data Data Completed and Pending Completed studies during hospitalization [Text1]: Procedures Insertion of Infusion Device into Upper Vein, Percutaneous Approach (11/07/23) Labs on day of discharge: Laboratory Results - last 24 hr 04/23/24 18:15 Sodium 140 Potassium 4.2 Chloride 109 H Carbon Dioxide 19 L Anion Gap 16 BUN 13 Creatinine 0.77 Estim Creat Clear Calc 117.2 Estimated GFR > 60 Random Glucose 108 Calcium 9.8 D Random Vancomycin 9.4 L Preliminary micro results at discharge 04/22/24 02:20 Blood Culture - Preliminary Blood - Venous No growth after 48 hours. 04/22/24 02:20 Blood Culture - Preliminary Blood - Venous No growth after 48 hours. Discharge Plan Discharge Anticipated Discharge Date/Time: 04/24/24 09:41 Patient Disposition: Home, Self-Care Discharge Diagnosis: Right foot wound/cellulitis Right 3rd finger abscess Referrals: Tamir Reeder MD [Primary Care Provider] - 1 Week Discharge Medications: New doxycycline monohydrate 100 mg capsule 100 mg PO BID Qty: 10 0RF Discharge Orders: Discharge Order (Routine); Ordered 04/24/24 Ordered By: Deirdre Romero Diet: Advance to usual diet Activity on Discharge: As tolerated Stand Alone Forms: Patient Portal Discharge page, Work/School Release Print Language: Peruvian Care Plan Goals: Continue daily dressing change to dorsum of right foot wet to dry dressing followed by dry fluffs and Kerlix Outpatient follow-up at wound clinic call on Friday to make the appointment Take antibiotic as prescribed for 5 more days. Health Concerns: Polysubstance abuse Plan of Treatment: Outpatient follow-up with primary care physician. Assessment: As above Discharge Date/Time: 04/24/24 11:03
--- NOTE | 2024-04-24 10:07 | MHC.CM.PN ---
PT WILL DC HOME TODAY WITH NO SERVICES VIA PRIVATE TRANSPORT
[2024-04-24 10:39] LABS: Creatinine Clr Calc Pharmacy 118.7; Estimated Glomerular Filt Rate > 60
--- NOTE | 2024-05-05 11:10 | P.CDIM_ITS ---
PROVIDER RESPONSE TEXT: To clarify, the appropriate diagnosis supported by the clinical indicators: Excisional debridement right foot: subcutaneous tissue QUERY TEXT: PHYSICIAN'S DOCUMENTATION REQUEST Date of Query: 05/04/2024 08:05 AM EDT Patient Name: Chuy Chicas Admit Date: 04/22/2024 Dear Kristina Gomez PA-C, RETROSPECTIVE QUERY A review of the medical record indicates additional documentation may be needed. Please review below and update the documentation accordingly. Clinical Indicators: General surgery 04/22 - The right foot wound is generally clean appearing without areas of necrosis how ever he does have chronic granulation tissue of the wound base and some fibrinous exudate which was sharply debrided wi th a curette at bedside. Encouraged right foot elevation. MRI foot pending. Could you provide, in the Progress Notes, further clarification regarding the depth of the debridemen t performed: Excisional debridement right foot skin, subcutaneous tissue and fascia, muscle, tendons etc. Other (explain) Clinically unable to determine (explain) Thank you, Natalie Boyd, CCS, CDIS Use of terms such as suspected, likely, concern for, or probable (associated with a specific diagnosi s that is being evaluated, monitored, or treated as if it exists) are acceptable and can be coded in the inpatient se tting, when documented at the time of discharge. Please use your independent medical judgment in providing your response. THIS QUERY IS PART OF THE PERMANENT MEDICAL RECORD
== END 2024-04-24 11:03 | disposition home or self-care (01) | DRG 380 ==
LOC: HO.ED 05:16 → HO.EDOVER 06:05 → HO.S3 14:06
PROVIDERS: Admitting Provider Student in an Organized Health Care Education/Training Program; Emergency Provider Emergency Medicine; PCP Internal Medicine; Visit Provider Hospitalist
DX: L97.519 Non-pressure chronic ulcer of other part of right foot with unspecified severity (principal); L03.115 Cellulitis of right lower limb; F11.90 Opioid use, unspecified, uncomplicated; F17.210 Nicotine dependence, cigarettes, uncomplicated; L03.011 Cellulitis of right finger; Z71.6 Tobacco abuse counseling; Z91.199 Patient's noncompliance with other medical treatment and regimen due to unspecified reason
CPT/HCPCS: 36415; 73140; 73630; 73720; 80048; 80053; 80202; 80307; 82565; 83605; 83690; 85025; 85652; 86140; 87040; 93005; 99285; A9585; J1650; J2543; J3370; J3371

== ENCOUNTER → 2024-04-22 05:59 | Outpatient (BNV) | payer OTHER, SELFPAY | PROVIDERS: Admitting Provider Student in an Organized Health Care Education/Training Program; Emergency Provider Emergency Medicine | DX: L02.511 Cutaneous abscess of right hand (principal) | CPT/HCPCS: 99232 ==

== ENCOUNTER → 2024-04-22 05:59 | Outpatient (BNV) | payer OTHER, SELFPAY | PROVIDERS: Admitting Provider Student in an Organized Health Care Education/Training Program; Emergency Provider Emergency Medicine; Visit Provider Nurse Practitioner Psychiatric/Mental Health | DX: F11.90 Opioid use, unspecified, uncomplicated (principal) | CPT/HCPCS: 99231; 99232 ==

== ENCOUNTER → 2024-04-22 05:59 | Outpatient (BNV) | payer OTHER, SELFPAY | PROVIDERS: Admitting Provider Student in an Organized Health Care Education/Training Program; Emergency Provider Emergency Medicine; PCP Internal Medicine; Visit Provider Physician Assistant Surgical | DX: L03.115 Cellulitis of right lower limb (principal); S91.301A Unspecified open wound, right foot, initial encounter; F19.90 Other psychoactive substance use, unspecified, uncomplicated | CPT/HCPCS: 97597; 99222 ==

== ENCOUNTER → 2024-04-22 05:59 | Outpatient (BNV) | payer OTHER, SELFPAY | PROVIDERS: Admitting Provider Student in an Organized Health Care Education/Training Program; Emergency Provider Emergency Medicine; Visit Provider Student in an Organized Health Care Education/Training Program | DX: L03.115 Cellulitis of right lower limb (principal); F19.90 Other psychoactive substance use, unspecified, uncomplicated | CPT/HCPCS: 99222; 99233; 99239 ==

== ENCOUNTER 2025-04-01 08:00 | Outpatient (RCR) | payer OTHER, SELFPAY | END 2025-04-27 16:29 | disposition home or self-care (01) | LOC: HO.WCC 08:00 | PROVIDERS: PCP Internal Medicine; Visit Provider Surgery Vascular Surgery | DX: L97.416 Non-pressure chronic ulcer of right heel and midfoot with bone involvement without evidence of necrosis (principal); G62.9 Polyneuropathy, unspecified; F17.210 Nicotine dependence, cigarettes, uncomplicated; Z86.19 Personal history of other infectious and parasitic diseases | CPT/HCPCS: 97597; 99203; 99204 ==